=== PATIENT | female | born 1950 | race Caucasian/White ===

== ENCOUNTER → 2016-05-23 | Outpatient (CLI) | payer MEDICARE ==
[2016-05-23 11:23] LABS: Appearance,Urine Clear (Clear); Bilirubin,Urine Negative (Negative); Glucose,Urine (UA) Negative (Negative); Ketones,Urine Negative (Negative); Leukocyte Esterase,Urine Moderate (Negative); Mucus,Urine Rare /hpf; Nitrite,Urine Negative (Negative); Particle Count 2387; Protein,Urine Negative (Negative); RBC,Urine 1 /hpf (0-5); Squamous Epithelial Cell,Urine 2 /hpf (0-4); UA Billing (MACRO vs. MICRO) MICRO; Urobilinogen,Urine <2.0 mg/dL (<2.0); WBC,Urine 5 /hpf (0-5)
[2016-05-23 11:35] LABS: Calcium 9.5 mg/dL (8.4-10.2); Phosphorous 4.8 mg/dL (2.5-4.5); Potassium 4.6 mmol/L (3.5-5.1); Uric Acid 8.2 mg/dL (3.7-7.4)
[2016-05-23 11:46] LABS: Basophils % (A) 0 %; CH 27.3; CHCM 31.2; Eosinophils # (A) 0.1 k/uL (0-0.7); Eosinophils % (A) 2 %; HCT 35.7 % (34.0-46.0); HDW 2.49; Hypochromasia Slight; Luc % (Auto) 3; Lymphocytes # (A) 1.5 k/uL (1.0-4.8); Lymphocytes % (A) 23 %; MCHC 30.7 g/dL (31.0-37.0); MCV 87.9 fL (80.0-100.0); Mean Platelet Volume 8.3; Monocytes # (A) 0.4 k/uL (0-1.0); Monocytes % (A) 7 %; Neutrophils # (A) 4.3 k/uL (1.3-7.7); Neutrophils % (A) 65 %; RBC 4.06 m/uL (3.80-5.40); RDW 14.1 % (11.5-15.5); WBC 6.6 k/uL (3.8-10.6); WBC (Perox) 6.85
== END | disposition home or self-care (01) ==
LOC: LABWHC1 10:00
PROVIDERS: ATTEND Internal Medicine Nephrology
DX: N18.3 Chronic kidney disease, stage 3 (moderate) (principal); N39.0 Urinary tract infection, site not specified; D64.9 Anemia, unspecified; E55.9 Vitamin D deficiency, unspecified; E21.3 Hyperparathyroidism, unspecified; M10.9 Gout, unspecified
CPT/HCPCS: 36415; 80048; 81001; 82306; 82728; 83540; 83550; 83735; 83970; 84100; 84550; 85025

== ENCOUNTER → 2016-09-01 | Outpatient (CLI) | payer MEDICARE ==
[2016-09-01 13:00] LABS: Basophils % (A) 1 %; CH 27.4; CHCM 32.1; Eosinophils # (A) 0.1 k/uL (0-0.7); Eosinophils % (A) 2 %; HDW 2.65; HGB 9.3 gm/dL (11.4-16.0); Luc # (Auto) 0.17; Luc % (Auto) 3; Lymphocytes # (A) 1.6 k/uL (1.0-4.8); Lymphocytes % (A) 26 %; MCH 28.3 pg (25.0-35.0); MCV 85.7 fL (80.0-100.0); Mean Platelet Volume 9.4; Monocytes # (A) 0.4 k/uL (0-1.0); Monocytes % (A) 7 %; Neutrophils # (A) 3.8 k/uL (1.3-7.7); Neutrophils % (A) 62 %; RBC 3.27 m/uL (3.80-5.40); RDW 14.3 % (11.5-15.5); WBC (Perox) 6.16
== END | disposition home or self-care (01) ==
LOC: LABWHC1 12:22
PROVIDERS: ATTEND Obstetrics & Gynecology Gynecology
DX: N95.0 Postmenopausal bleeding (principal)
CPT/HCPCS: 36415; 85025; 86850; 86900; 86901

== ENCOUNTER → 2016-09-21 | Outpatient (CLI) | payer MEDICARE | END | disposition home or self-care (01) | LOC: LABWHC1 13:43 | PROVIDERS: ATTEND Internal Medicine Clinical Cardiac Electrophysiology | DX: G45.9 Transient cerebral ischemic attack, unspecified (principal); I10 Essential (primary) hypertension; E78.5 Hyperlipidemia, unspecified | CPT/HCPCS: 36415; 80061; 84443 ==

== ENCOUNTER → 2017-01-17 | Outpatient (CLI) | payer MEDICARE ==
[2017-01-17 12:36] LABS: Calcium 9.6 mg/dL (8.4-10.2); Potassium 4.5 mmol/L (3.5-5.1)
== END | disposition home or self-care (01) ==
LOC: LABWHC1 11:20
PROVIDERS: ATTEND Internal Medicine Clinical Cardiac Electrophysiology
DX: E78.2 Mixed hyperlipidemia (principal); D64.9 Anemia, unspecified
CPT/HCPCS: 36415; 80048; 80061; 82550; 84450; 84460

== ENCOUNTER → 2017-08-14 | Outpatient (CLI) | payer MEDICARE ==
[2017-08-14 13:15] LABS: Basophils % (A) 1 %; Eosinophils # (A) 0.1 k/uL (0-0.7); Eosinophils % (A) 2 %; HCT 35.9 % (34.0-46.0); HGB 11.6 gm/dL (11.4-16.0); Lymphocytes # (A) 1.5 k/uL (1.0-4.8); Lymphocytes % (A) 32 %; MCH 28.6 pg (25.0-35.0); MCHC 32.2 g/dL (31.0-37.0); MCV 88.8 fL (80.0-100.0); Mean Platelet Volume 8.7; Monocytes # (A) 0.3 k/uL (0-1.0); Monocytes % (A) 7 %; Neutrophils # (A) 2.6 k/uL (1.3-7.7); Neutrophils % (A) 56 %; Platelet Count 139 k/uL (150-450); RBC 4.04 m/uL (3.80-5.40); RDW 14.6 % (11.5-15.5); WBC 4.6 k/uL (3.8-10.6)
[2017-08-14 13:25] LABS: Appearance,Urine Cloudy (Clear); Bacteria,Urine Few /hpf; Bilirubin,Urine Negative (Negative); Blood,Urine Small (Negative); Color,Urine Light Yellow; Glucose,Urine (UA) Negative (Negative); Hyaline Casts,Urine 1 /lpf (0-2); Ketones,Urine Negative (Negative); Leukocyte Esterase,Urine Large (Negative); Mucus,Urine Rare /hpf; Nitrite,Urine Negative (Negative); PH, Urine 5.5 (5.0-8.0); Protein,Urine Negative (Negative); RBC,Urine 6 /hpf (0-5); Specific Gravity,Urine 1.012 (1.001-1.035); Squamous Epithelial Cell,Urine 6 /hpf (0-4); Urobilinogen,Urine <2.0 mg/dL (<2.0); WBC,Urine 33 /hpf (0-5)
[2017-08-14 13:30] LABS: Calcium 9.1 mg/dL (8.4-10.2); Magnesium 2.1 mg/dL (1.6-2.3); Phosphorus 4.1 mg/dL (2.5-4.5); Potassium 4.6 mmol/L (3.5-5.1); Uric Acid 7.7 mg/dL (3.7-7.4)
[2017-08-14 18:54] LABS: Iron Saturation 20.07 (12.00-45.00)
[2017-08-14 19:03] LABS: Vitamin D 25 Hydroxy 49.2 ng/mL (30.0-100.0)
[2017-08-14 20:11] LABS: Parathyroid Hormone Intact 122.9 pg/mL (14.0-72.0)
== END | disposition home or self-care (01) ==
LOC: LABWHC1 11:56
PROVIDERS: ATTEND Nurse Practitioner Family
DX: N18.3 Chronic kidney disease, stage 3 (moderate) (principal); D64.9 Anemia, unspecified; N39.0 Urinary tract infection, site not specified; N25.81 Secondary hyperparathyroidism of renal origin; E79.0 Hyperuricemia without signs of inflammatory arthritis and tophaceous disease
CPT/HCPCS: 36415; 80048; 81001; 82306; 82728; 83540; 83550; 83735; 83970; 84100; 84550; 85025; 87086

== ENCOUNTER → 2017-12-05 | Outpatient (CLI) | payer MEDICARE ==
[2017-12-05 14:31] LABS: Appearance,Urine Cloudy (Clear); Bacteria,Urine Rare /hpf; Basophils % (A) 1 %; Bilirubin,Urine Negative (Negative); Blood,Urine Small (Negative); Color,Urine Yellow; Eosinophils # (A) 0.1 k/uL (0-0.7); Eosinophils % (A) 2 %; Glucose,Urine (UA) Negative (Negative); HCT 35.6 % (34.0-46.0); HGB 11.3 gm/dL (11.4-16.0); Ketones,Urine Negative (Negative); Leukocyte Esterase,Urine Large (Negative); Lymphocytes # (A) 1.4 k/uL (1.0-4.8); Lymphocytes % (A) 27 %; MCH 28.3 pg (25.0-35.0); MCHC 31.7 g/dL (31.0-37.0); MCV 89.4 fL (80.0-100.0); Mean Platelet Volume 8.7; Monocytes # (A) 0.3 k/uL (0-1.0); Monocytes % (A) 6 %; Mucus,Urine Rare /hpf; Neutrophils # (A) 3.2 k/uL (1.3-7.7); Neutrophils % (A) 61 %; Nitrite,Urine Negative (Negative); PH, Urine 6.5 (5.0-8.0); Platelet Count 147 k/uL (150-450); Protein,Urine Negative (Negative); RBC 3.98 m/uL (3.80-5.40); RBC,Urine 4 /hpf (0-5); RDW 14.5 % (11.5-15.5); Specific Gravity,Urine 1.015 (1.001-1.035); Squamous Epithelial Cell,Urine 7 /hpf (0-4); Urobilinogen,Urine <2.0 mg/dL (<2.0); WBC 5.3 k/uL (3.8-10.6); WBC,Urine 8 /hpf (0-5)
[2017-12-05 14:44] LABS: Calcium 9.5 mg/dL (8.4-10.2); Magnesium 2.2 mg/dL (1.6-2.3); Phosphorus 3.6 mg/dL (2.5-4.5); Potassium 4.7 mmol/L (3.5-5.1); Uric Acid 8.3 mg/dL (3.7-7.4)
[2017-12-05 18:08] LABS: Creatinine,Urine Random 142.3 mg/dL
[2017-12-05 18:38] LABS: Iron Saturation 25.98 (12.00-45.00)
[2017-12-05 18:46] LABS: Vitamin D 25 Hydroxy 45.9 ng/mL (30.0-100.0)
[2017-12-05 18:53] LABS: Parathyroid Hormone Intact 91.8 pg/mL (14.0-72.0)
== END ==
LOC: LABWHC1 12:53
PROVIDERS: ATTEND Internal Medicine Nephrology
DX: N18.3 Chronic kidney disease, stage 3 (moderate) (principal); D63.1 Anemia in chronic kidney disease; N39.0 Urinary tract infection, site not specified; M10.9 Gout, unspecified; R80.9 Proteinuria, unspecified; N25.81 Secondary hyperparathyroidism of renal origin
CPT/HCPCS: 36415; 80048; 81001; 82040; 82306; 82570; 82728; 83540; 83550; 83735; 83970; 84100; 84156; 84550; 85025

== ENCOUNTER → 2017-12-27 | Outpatient (CLI) | payer MEDICARE ==
[2017-12-27 13:03] LABS: Basophils % (A) 1 %; Eosinophils # (A) 0.1 k/uL (0-0.7); Eosinophils % (A) 2 %; HCT 36.7 % (34.0-46.0); HGB 11.9 gm/dL (11.4-16.0); Lymphocytes # (A) 1.5 k/uL (1.0-4.8); Lymphocytes % (A) 28 %; MCH 29.3 pg (25.0-35.0); MCHC 32.5 g/dL (31.0-37.0); MCV 90.1 fL (80.0-100.0); Mean Platelet Volume 8.5; Monocytes # (A) 0.3 k/uL (0-1.0); Monocytes % (A) 5 %; Neutrophils # (A) 3.3 k/uL (1.3-7.7); Neutrophils % (A) 61 %; Partial Thromboplastin Time 26.5 sec (22.0-30.0); Platelet Count 147 k/uL (150-450); Prothrombin Time 9.6 sec (9.0-12.0); RBC 4.07 m/uL (3.80-5.40); RDW 14.5 % (11.5-15.5); WBC 5.3 k/uL (3.8-10.6)
--- NOTE | 2017-12-27 14:55 | XR ---
EXAMINATION TYPE: XR chest 2V DATE OF EXAM: 12/27/2017 COMPARISON: Prior chest x-ray 06/04/2013 HISTORY: Preop TECHNIQUE: Frontal and lateral views of the chest are obtained. FINDINGS: There is no focal air space opacity, pleural effusion, or pneumothorax seen. The cardiac silhouette size is within normal limits. Question a spinal curvature. Linear increased density in the left midlung laterally may represent atelectasis or scar. The osseous structures are intact. IMPRESSION: No acute cardiopulmonary process. Some minimal scarring or subsegmental atelectasis may be present.
[2017-12-27 19:03] LABS: Albumin 4.4 g/dL (3.80-4.90); Albumin/Globulin Ratio 1.63 (1.20-2.10); Anion Gap 7.6 mmol/L (4.00-12.00); Calcium 9.3 mg/dL (8.7-10.3); Carbon Dioxide 27.4 mmol/L (21.6-31.8); Globulin 2.7 g/dL (2.1-3.7); Potassium 3.8 mmol/L (3.5-5.5); Total Bilirubin 0.4 mg/dL (0.2-1.2); Total Protein 7.1 g/dL (6.2-8.2)
== END ==
LOC: LABWHC1 12:07
PROVIDERS: ATTEND Family Medicine
DX: Z01.818 Encounter for other preprocedural examination (principal); Z01.812 Encounter for preprocedural laboratory examination; Z51.81 Encounter for therapeutic drug level monitoring; Z79.01 Long term (current) use of anticoagulants
CPT/HCPCS: 36415; 71046; 80053; 85025; 85610; 85730; 87070

== ENCOUNTER → 2018-02-12 | Outpatient (CLI) | payer MEDICARE ==
[2018-02-12 13:07] LABS: Basophils % (A) 1 %; Eosinophils # (A) 0.1 k/uL (0-0.7); Eosinophils % (A) 2 %; HCT 35.6 % (34.0-46.0); HGB 10.9 gm/dL (11.4-16.0); Hypochromasia Moderate; Lymphocytes # (A) 1.5 k/uL (1.0-4.8); Lymphocytes % (A) 28 %; MCH 26.6 pg (25.0-35.0); MCHC 30.7 g/dL (31.0-37.0); MCV 86.6 fL (80.0-100.0); Mean Platelet Volume 8.2; Monocytes # (A) 0.4 k/uL (0-1.0); Monocytes % (A) 8 %; Neutrophils # (A) 3.3 k/uL (1.3-7.7); Neutrophils % (A) 60 %; Platelet Count 180 k/uL (150-450); WBC 5.5 k/uL (3.8-10.6)
[2018-02-12 13:29] LABS: Appearance,Urine Cloudy (Clear); Bacteria,Urine Rare /hpf; Bilirubin,Urine Negative (Negative); Blood,Urine Trace (Negative); Color,Urine Yellow; Glucose,Urine (UA) Negative (Negative); Ketones,Urine Negative (Negative); Leukocyte Esterase,Urine Large (Negative); Mucus,Urine Occasional /hpf; Nitrite,Urine Negative (Negative); Protein,Urine Trace (Negative); RBC,Urine 8 /hpf (0-5); Specific Gravity,Urine 1.015 (1.001-1.035); Squamous Epithelial Cell,Urine 38 /hpf (0-4); Urobilinogen,Urine <2.0 mg/dL (<2.0); WBC,Urine 43 /hpf (0-5)
[2018-02-12 19:36] LABS: Iron Saturation 17.45 (12.00-45.00)
[2018-02-12 19:45] LABS: Vitamin D 25 Hydroxy 55.7 ng/mL (30.0-100.0)
[2018-02-12 20:13] LABS: Albumin 4.2 g/dL (3.80-4.90); Anion Gap 10.7 mmol/L (4.00-12.00); Calcium 9.5 mg/dL (8.7-10.3); Carbon Dioxide 29.3 mmol/L (21.6-31.8); Magnesium 1.8 mg/dL (1.5-2.4); Phosphorus 3.8 mg/dL (2.4-5.1); Potassium 3.2 mmol/L (3.5-5.5); Uric Acid 9.3 mg/dL (2.9-7.7)
[2018-02-12 22:02] LABS: Parathyroid Hormone Intact 106.1 pg/mL (14.0-72.0)
[2018-02-13 02:49] LABS: Creatinine,Urine Random 183.7 mg/dL
[2018-02-13 05:06] LABS: Total Protein,Urine Random 19.8 mg/dL (0.0-13.5)
== END | disposition home or self-care (01) ==
LOC: LABWHC1 11:57
PROVIDERS: ATTEND Internal Medicine Nephrology
DX: N18.4 Chronic kidney disease, stage 4 (severe) (principal); D63.1 Anemia in chronic kidney disease; E55.9 Vitamin D deficiency, unspecified; E21.3 Hyperparathyroidism, unspecified; M10.9 Gout, unspecified; N39.0 Urinary tract infection, site not specified; R80.9 Proteinuria, unspecified
CPT/HCPCS: 36415; 80048; 81001; 82040; 82306; 82570; 82728; 83540; 83550; 83735; 83970; 84100; 84156; 84550; 85025

== ENCOUNTER → 2018-05-10 | Outpatient (CLI) | payer MEDICARE ==
[2018-05-10 11:36] LABS: Anisocytosis Slight; Basophils # (A) 0.1 k/uL (0-0.2); Basophils % (A) 1 %; Eosinophils # (A) 0.1 k/uL (0-0.7); Eosinophils % (A) 2 %; HCT 39.3 % (34.0-46.0); HGB 12.2 gm/dL (11.4-16.0); Lymphocytes # (A) 1.9 k/uL (1.0-4.8); Lymphocytes % (A) 28 %; MCH 27.1 pg (25.0-35.0); MCV 87.5 fL (80.0-100.0); Mean Platelet Volume 8.6; Monocytes # (A) 0.4 k/uL (0-1.0); Monocytes % (A) 6 %; Neutrophils # (A) 4.3 k/uL (1.3-7.7); Neutrophils % (A) 61 %; Platelet Count 172 k/uL (150-450); RBC 4.49 m/uL (3.80-5.40); RDW 16.8 % (11.5-15.5); WBC 6.9 k/uL (3.8-10.6)
[2018-05-10 11:46] LABS: Amorphous Sediment,Urine Rare /hpf; Appearance,Urine Cloudy (Clear); Bacteria,Urine Rare /hpf; Bilirubin,Urine Negative (Negative); Blood,Urine Negative (Negative); Color,Urine Yellow; Glucose,Urine (UA) Negative (Negative); Hyaline Casts,Urine 5 /lpf (0-2); Ketones,Urine Negative (Negative); Leukocyte Esterase,Urine Large (Negative); Mucus,Urine Rare /hpf; Nitrite,Urine Negative (Negative); Protein,Urine Negative (Negative); RBC,Urine 2 /hpf (0-5); Specific Gravity,Urine 1.011 (1.001-1.035); Squamous Epithelial Cell,Urine 9 /hpf (0-4); Urobilinogen,Urine <2.0 mg/dL (<2.0); WBC,Urine 4 /hpf (0-5)
[2018-05-10 19:40] LABS: Parathyroid Hormone Intact 107.7 pg/mL (14.0-72.0)
[2018-05-10 20:11] LABS: Iron Saturation 19.5 (12.00-45.00)
[2018-05-10 20:20] LABS: Vitamin D 25 Hydroxy 48.7 ng/mL (30.0-100.0)
[2018-05-10 20:44] LABS: Albumin 4.5 g/dL (3.80-4.90); Anion Gap 7.2 mmol/L (4.00-12.00); Calcium 9.7 mg/dL (8.7-10.3); Carbon Dioxide 28.8 mmol/L (21.6-31.8); Phosphorus 3.4 mg/dL (2.4-5.1); Potassium 3.8 mmol/L (3.5-5.5); Uric Acid 8.2 mg/dL (2.9-7.7)
[2018-05-10 20:49] LABS: Creatinine,Urine Random 116.1 mg/dL
[2018-05-10 21:13] LABS: Total Protein,Urine Random 8.8 mg/dL (0.0-13.5)
== END | disposition home or self-care (01) ==
LOC: LABWHC1 10:47
PROVIDERS: ATTEND Internal Medicine Nephrology
DX: N18.4 Chronic kidney disease, stage 4 (severe) (principal); E61.1 Iron deficiency; M10.9 Gout, unspecified; R80.9 Proteinuria, unspecified; E55.9 Vitamin D deficiency, unspecified; E21.3 Hyperparathyroidism, unspecified
CPT/HCPCS: 36415; 80048; 81001; 82040; 82306; 82570; 82728; 83540; 83550; 83735; 83970; 84100; 84156; 84550; 85025

== ENCOUNTER → 2018-06-28 | Outpatient (CLI) | payer MEDICARE ==
[2018-06-28 11:13] LABS: HGB 11.5 gm/dL (11.4-16.0); MCH 27.7 pg (25.0-35.0); MCHC 31.1 g/dL (31.0-37.0); MCV 88.8 fL (80.0-100.0); Mean Platelet Volume 8.6; Platelet Count 156 k/uL (150-450); RBC 4.16 m/uL (3.80-5.40); RDW 15.4 % (11.5-15.5); WBC 5.4 k/uL (3.8-10.6)
[2018-06-28 11:50] LABS: Appearance,Urine Clear (Clear); Bacteria,Urine Rare /hpf; Bilirubin,Urine Negative (Negative); Blood,Urine Negative (Negative); Color,Urine Light Yellow; Glucose,Urine (UA) Negative (Negative); Hyaline Casts,Urine 9 /lpf (0-2); Ketones,Urine Negative (Negative); Leukocyte Esterase,Urine Moderate (Negative); Mucus,Urine Rare /hpf; Nitrite,Urine Negative (Negative); PH, Urine 5.5 (5.0-8.0); Protein,Urine Negative (Negative); RBC,Urine 2 /hpf (0-5); Squamous Epithelial Cell,Urine 5 /hpf (0-4); Urobilinogen,Urine <2.0 mg/dL (<2.0); WBC,Urine 2 /hpf (0-5)
[2018-06-28 17:45] LABS: Albumin 4.2 g/dL (3.80-4.90); Albumin/Globulin Ratio 1.62 (1.60-3.17); Calcium 9.4 mg/dL (8.7-10.3); Globulin 2.6 g/dL (1.6-3.3); Potassium 4.2 mmol/L (3.5-5.5); Total Bilirubin 0.5 mg/dL (0.2-1.2); Total Protein 6.8 g/dL (6.2-8.2)
== END | disposition home or self-care (01) ==
LOC: LABWHC1 10:21
PROVIDERS: ATTEND Family Medicine
DX: Z11.59 Encounter for screening for other viral diseases (principal); Z79.899 Other long term (current) drug therapy
CPT/HCPCS: 36415; 80053; 80061; 81001; 82550; 83036; 84443; 85027; 86803

== ENCOUNTER → 2018-09-03 | Outpatient (CLI) | payer MEDICARE ==
[2018-09-03 12:50] LABS: Basophils % (A) 1 %; Eosinophils # (A) 0.2 k/uL (0-0.7); Eosinophils % (A) 3 %; HGB 11.4 gm/dL (11.4-16.0); Lymphocytes # (A) 1.6 k/uL (1.0-4.8); Lymphocytes % (A) 30 %; MCH 27.5 pg (25.0-35.0); MCHC 31.6 g/dL (31.0-37.0); MCV 86.9 fL (80.0-100.0); Mean Platelet Volume 8.4; Monocytes # (A) 0.3 k/uL (0-1.0); Monocytes % (A) 6 %; Neutrophils # (A) 3.1 k/uL (1.3-7.7); Neutrophils % (A) 57 %; Platelet Count 153 k/uL (150-450); RBC 4.14 m/uL (3.80-5.40); RDW 15.2 % (11.5-15.5); WBC 5.4 k/uL (3.8-10.6)
[2018-09-03 13:41] LABS: Appearance,Urine Cloudy (Clear); Bacteria,Urine Rare /hpf; Bilirubin,Urine Negative (Negative); Blood,Urine Small (Negative); Color,Urine Yellow; Glucose,Urine (UA) Negative (Negative); Ketones,Urine Negative (Negative); Leukocyte Esterase,Urine Large (Negative); Mucus,Urine Rare /hpf; Nitrite,Urine Negative (Negative); PH, Urine 5.5 (5.0-8.0); Protein,Urine Negative (Negative); RBC,Urine 7 /hpf (0-5); Specific Gravity,Urine 1.014 (1.001-1.035); Squamous Epithelial Cell,Urine 7 /hpf (0-4); Urobilinogen,Urine <2.0 mg/dL (<2.0); WBC,Urine 4 /hpf (0-5)
[2018-09-03 19:21] LABS: African American GFR (CKD) 37.4 (60.0-200.0); Albumin 4.2 g/dL (3.80-4.90); Anion Gap 9.2 mmol/L (4.00-12.00); BUN/Creat Ratio 18.75 Ratio (12.00-20.00); Calcium 9.3 mg/dL (8.7-10.3); Carbon Dioxide 26.8 mmol/L (21.6-31.8); Iron Saturation 19.11 (12.00-45.00); Magnesium 2.1 mg/dL (1.5-2.4); Phosphorus 3.5 mg/dL (2.4-5.1); Potassium 4.1 mmol/L (3.5-5.5); Uric Acid 9.1 mg/dL (2.9-7.7)
[2018-09-03 19:24] LABS: Parathyroid Hormone Intact 125.9 pg/mL (14.0-72.0)
[2018-09-03 19:25] LABS: Vitamin D 25 Hydroxy 51.6 ng/mL (30.0-100.0)
[2018-09-04 04:00] LABS: Creatinine,Urine Random 114.7 mg/dL
[2018-09-04 04:40] LABS: Total Protein,Urine Random 8.7 mg/dL (0.0-13.5)
== END | disposition home or self-care (01) ==
LOC: LABWHC1 12:16
PROVIDERS: ATTEND Internal Medicine Nephrology
DX: E21.3 Hyperparathyroidism, unspecified (principal); E61.1 Iron deficiency; E55.9 Vitamin D deficiency, unspecified; R80.9 Proteinuria, unspecified; N18.4 Chronic kidney disease, stage 4 (severe); N39.0 Urinary tract infection, site not specified; M10.9 Gout, unspecified
CPT/HCPCS: 36415; 80048; 81001; 82040; 82306; 82570; 82728; 83540; 83550; 83735; 83970; 84100; 84156; 84550; 85025

== ENCOUNTER → 2019-01-03 | Outpatient (CLI) | payer MEDICARE ==
[2019-01-03 12:02] LABS: Appearance,Urine Cloudy (Clear); Bacteria,Urine Occasional /hpf; Bilirubin,Urine Negative (Negative); Blood,Urine Negative (Negative); Color,Urine Light Yellow; Glucose,Urine (UA) Negative (Negative); Hyaline Casts,Urine 8 /lpf (0-2); Ketones,Urine Negative (Negative); Leukocyte Esterase,Urine Large (Negative); Mucus,Urine Rare /hpf; Nitrite,Urine Negative (Negative); Protein,Urine Negative (Negative); RBC,Urine 5 /hpf (0-5); Specific Gravity,Urine 1.008 (1.001-1.035); Squamous Epithelial Cell,Urine 21 /hpf (0-4); Urobilinogen,Urine <2.0 mg/dL (<2.0); WBC,Urine 21 /hpf (0-5)
[2019-01-03 12:05] LABS: Basophils % (A) 1 %; Eosinophils # (A) 0.1 k/uL (0-0.7); Eosinophils % (A) 1 %; HCT 38.8 % (34.0-46.0); HGB 12.7 gm/dL (11.4-16.0); Lymphocytes # (A) 1.5 k/uL (1.0-4.8); Lymphocytes % (A) 23 %; MCH 28.4 pg (25.0-35.0); MCHC 32.8 g/dL (31.0-37.0); MCV 86.6 fL (80.0-100.0); Mean Platelet Volume 8.4; Monocytes # (A) 0.3 k/uL (0-1.0); Monocytes % (A) 4 %; Neutrophils # (A) 4.5 k/uL (1.3-7.7); Neutrophils % (A) 68 %; Platelet Count 189 k/uL (150-450); RBC 4.48 m/uL (3.80-5.40); RDW 15.4 % (11.5-15.5); WBC 6.6 k/uL (3.8-10.6)
[2019-01-03 16:44] LABS: Creatinine,Urine Random 55.5 mg/dL
[2019-01-03 16:52] LABS: Total Protein,Urine Random 10.2 mg/dL (0.0-13.5)
[2019-01-03 17:50] LABS: Ferritin 67.6 ng/mL (10.0-291.0)
[2019-01-03 18:05] LABS: % Iron Saturation 21.36 (12.00-45.00); African American GFR (CKD) 34.8 (60.0-200.0); Albumin 4.3 g/dL (3.80-4.90); Anion Gap 10.9 mmol/L (4.00-12.00); BUN/Creat Ratio 29.41 Ratio (12.00-20.00); Calcium 9.5 mg/dL (8.7-10.3); Carbon Dioxide 33.1 mmol/L (21.6-31.8); Magnesium 1.9 mg/dL (1.5-2.4); Phosphorus 3.3 mg/dL (2.4-5.1)
[2019-01-04 09:19] LABS: Potassium 2.7 mmol/L (3.5-5.5)
== END | disposition home or self-care (01) ==
LOC: LABWHC1 11:12
PROVIDERS: ATTEND Internal Medicine Nephrology
DX: N18.4 Chronic kidney disease, stage 4 (severe) (principal); D63.1 Anemia in chronic kidney disease; N25.81 Secondary hyperparathyroidism of renal origin; M10.9 Gout, unspecified; N39.0 Urinary tract infection, site not specified; R80.9 Proteinuria, unspecified
CPT/HCPCS: 36415; 80048; 81001; 82040; 82306; 82570; 82728; 83540; 83550; 83735; 83970; 84100; 84156; 84550; 85025; 87077; 87086; 87186

== ENCOUNTER → 2019-01-14 | Outpatient (CLI) | payer MEDICARE ==
[2019-01-14 20:03] LABS: African American GFR (CKD) 34.8 (60.0-200.0); Anion Gap 10.5 mmol/L (4.00-12.00); BUN/Creat Ratio 24.71 Ratio (12.00-20.00); Calcium 9.3 mg/dL (8.7-10.3); Carbon Dioxide 31.5 mmol/L (21.6-31.8)
[2019-01-15 07:30] LABS: Potassium 2.6 mmol/L (3.5-5.5)
== END | disposition home or self-care (01) ==
LOC: LABWHC1 12:45
PROVIDERS: ATTEND Internal Medicine Nephrology
DX: N18.3 Chronic kidney disease, stage 3 (moderate) (principal)
CPT/HCPCS: 36415; 80048

== ENCOUNTER → 2019-01-20 | Outpatient (CLI) | payer MEDICARE | END | disposition home or self-care (01) | LOC: LABWHC1 11:40 | PROVIDERS: ATTEND Internal Medicine Nephrology | DX: N18.4 Chronic kidney disease, stage 4 (severe) (principal); E87.6 Hypokalemia | CPT/HCPCS: 36415; 84132; 87086 ==

== ENCOUNTER → 2019-02-05 | Outpatient (CLI) | payer MEDICARE ==
--- NOTE | 2019-02-05 15:26 | BD ---
EXAMINATION TYPE: Axial Bone Density DATE OF EXAM: 02/05/2019 COMPARISON: NONE CLINICAL HISTORY: Z 78.0 Height: 5 FT 5 1/2 IN Weight: 382 FRAX RISK QUESTIONS: Alcohol (3 or more units per day): NO Family History (Parent hip fracture): NO Glucocorticoids (More than 3mos): NO (Ex: prednisone, prednisolone, methylprednisolone, dexamethasone, and hydrocortisone). History of Fracture in Adulthood: NO Secondary Osteoporosis: 1. Type 1 Diabetes: NO 2. Hyperthyroidism: NO 3. Menopause before 45: NO 4. Malnutrition: NO 5. Chronic liver disease: NO Rheumatoid Arthritis: NO Current Tobacco Use: NO RISK FACTORS HISTORY OF: Family History of Osteoporosis: YES Active: YES Postmenopausal woman: UNSURE WHEN MENOPAUSE WAS Poor Health: GOOD MEDICATIONS: Thyroid Medications: YES Which medication: SYNTHROID How Long: OVER 20 YEARS Additional Medications: SYNTHROID, CLARITIN, PLAVIX, SIMVASTATIN, PREVACID, VIT D3, ALLOPURINOL, AMLO DIPINE ,FUROSEMIDE, POTASSIUM, METOLAZINE, NITRO NEEDED, CEPHALEXIN NEEDED FOR DENTAL WORK Additional History: EXAM MEASUREMENTS: Bone mineral densitometry was performed using the [employer] System. Bone mineral density as measured about the Lumbar spine is: ----- L1-L4(G/cm2): 1.386 T Score Values are as follows: ----- L2: 0.5 ----- L3: 2.3 ----- L4: 2.1 ----- L1-L4: 1.7 BASELINE Bone mineral density about the R hip (g/cm2): 0.807 Bone mineral density about the L hip (g/cm2): 0.844 T Score values are as follows: -----R Neck: -1.7 -----L Neck: -1.4 -----R Total: -1.5 -----L Total: -1.0 BASELINE IMPRESSION: Osteopenia (T Score between -2.5 and -1). There is slightly increased risk of fracture and the patient may be considered for treatment. Re-Screen 2-5 years. NOTE: T-SCORE=SD OF THE YOUNG ADULT MEAN.
--- NOTE | 2019-02-07 12:23 | MM ---
Reason for exam: screening (asymptomatic). History: Patient history of other cancer. Family history of breast cancer in mother. Excisional biopsy of the left breast, 1988. Physical Findings: A clinical breast exam by your physician is recommended on an annual basis and results should be correlated with mammographic findings. MG 3D Screening Mammo W/Cad Bilateral CC, MLO, and XCCL view(s) were taken. There are scattered fibroglandular densities. There is chronic nodularity bilaterally. No significant changes when compared with prior studies. ASSESSMENT: Benign, BI-RAD 2 RECOMMENDATION: Routine screening mammogram of both breasts in 1 year.
== END | disposition home or self-care (01) ==
LOC: RADMAMWWP 13:55
PROVIDERS: ATTEND Family Medicine
DX: Z12.31 Encounter for screening mammogram for malignant neoplasm of breast (principal); M85.80 Other specified disorders of bone density and structure, unspecified site; Z78.0 Asymptomatic menopausal state
CPT/HCPCS: 77063; 77067; 77080

== ENCOUNTER → 2019-02-05 | Outpatient (CLI) | payer MEDICARE | END | disposition home or self-care (01) | LOC: LABWHC1 14:53 | PROVIDERS: ATTEND Internal Medicine Nephrology | DX: E87.6 Hypokalemia (principal) | CPT/HCPCS: 36415; 84132 ==

== ENCOUNTER → 2019-02-18 | Outpatient (CLI) | payer MEDICARE | LOC: LABWHC1 10:23 | PROVIDERS: ATTEND Internal Medicine Nephrology | DX: E87.6 Hypokalemia (principal) | CPT/HCPCS: 36415; 84132 ==

== ENCOUNTER → 2019-03-07 | Outpatient (CLI) | payer MEDICARE ==
[2019-03-08 00:55] LABS: African American GFR (CKD) 30.2 (60.0-200.0); Anion Gap 11.9 mmol/L (4.00-12.00); BUN/Creat Ratio 24.74 Ratio (12.00-20.00); Carbon Dioxide 29.1 mmol/L (21.6-31.8); Non-African American GFR(CKD) 26.1 (60.0-200.0); Potassium 3.8 mmol/L (3.5-5.5)
== END | disposition home or self-care (01) ==
LOC: LABWHC1 16:16
PROVIDERS: ATTEND Nurse Practitioner Family
DX: N18.3 Chronic kidney disease, stage 3 (moderate) (principal)
CPT/HCPCS: 36415; 80048

== ENCOUNTER → 2019-08-13 | Outpatient (CLI) | payer MEDICARE ==
[2019-08-13 13:06] LABS: Anisocytosis Slight; Basophils % (A) 1 %; Eosinophils # (A) 0.2 k/uL (0-0.7); Eosinophils % (A) 2 %; HGB 11.8 gm/dL (11.4-16.0); Lymphocytes # (A) 1.8 k/uL (1.0-4.8); Lymphocytes % (A) 27 %; MCH 27.9 pg (25.0-35.0); MCV 89.8 fL (80.0-100.0); Mean Platelet Volume 10.1; Monocytes # (A) 0.4 k/uL (0-1.0); Monocytes % (A) 6 %; Neutrophils # (A) 3.9 k/uL (1.3-7.7); Neutrophils % (A) 60 %; Platelet Count 151 k/uL (150-450); RBC 4.23 m/uL (3.80-5.40); RDW 16.2 % (11.5-15.5); WBC 6.5 k/uL (3.8-10.6)
[2019-08-13 14:33] LABS: Appearance,Urine Cloudy (Clear); Bacteria,Urine Occasional /hpf; Bilirubin,Urine Negative (Negative); Blood,Urine Trace (Negative); Color,Urine Yellow; Glucose,Urine (UA) Negative (Negative); Hyaline Casts,Urine 5 /lpf (0-2); Ketones,Urine Negative (Negative); Leukocyte Esterase,Urine Large (Negative); Mucus,Urine Rare /hpf; Nitrite,Urine Negative (Negative); PH, Urine 5.5 (5.0-8.0); Protein,Urine Negative (Negative); RBC,Urine 32 /hpf (0-5); Specific Gravity,Urine 1.016 (1.001-1.035); Squamous Epithelial Cell,Urine 14 /hpf (0-4); Urobilinogen,Urine <2.0 mg/dL (<2.0); WBC,Urine 30 /hpf (0-5)
[2019-08-13 15:36] LABS: Protein/Creatinine Ratio,Urine 0.057
[2019-08-13 18:50] LABS: % Iron Saturation 19.17 (12.00-45.00); African American GFR (CKD) 30.2 (60.0-200.0); Albumin 4.2 g/dL (3.80-4.90); Anion Gap 9.8 mmol/L (4.00-12.00); BUN/Creat Ratio 26.32 Ratio (12.00-20.00); Calcium 9.4 mg/dL (8.7-10.3); Carbon Dioxide 27.2 mmol/L (21.6-31.8); Magnesium 1.9 mg/dL (1.5-2.4); Non-African American GFR(CKD) 26.1 (60.0-200.0); Phosphorus 3.4 mg/dL (2.4-5.1); Potassium 3.5 mmol/L (3.5-5.5); Uric Acid 8.3 mg/dL (2.9-7.7)
[2019-08-13 18:57] LABS: Ferritin 45.9 ng/mL (10.0-291.0)
== END | disposition home or self-care (01) ==
LOC: LABWHC1 12:39
PROVIDERS: ATTEND Internal Medicine Nephrology
DX: N18.3 Chronic kidney disease, stage 3 (moderate) (principal); D63.1 Anemia in chronic kidney disease; N25.81 Secondary hyperparathyroidism of renal origin; M10.9 Gout, unspecified; N39.0 Urinary tract infection, site not specified; E55.9 Vitamin D deficiency, unspecified; R80.9 Proteinuria, unspecified
CPT/HCPCS: 36415; 80048; 81001; 82040; 82306; 82570; 82728; 83540; 83550; 83735; 83970; 84100; 84156; 84550; 85025

== ENCOUNTER → 2019-11-25 | Outpatient (CLI) | payer MEDICARE ==
[2019-11-25 12:53] LABS: Anisocytosis Slight; Basophils # (A) 0.1 k/uL (0-0.2); Basophils % (A) 1 %; Eosinophils # (A) 0.1 k/uL (0-0.7); Eosinophils % (A) 2 %; HCT 38.3 % (34.0-46.0); Lymphocytes # (A) 1.9 k/uL (1.0-4.8); Lymphocytes % (A) 25 %; MCH 27.9 pg (25.0-35.0); MCHC 31.2 g/dL (31.0-37.0); MCV 89.4 fL (80.0-100.0); Mean Platelet Volume 9.3; Monocytes # (A) 0.4 k/uL (0-1.0); Monocytes % (A) 6 %; Neutrophils # (A) 4.8 k/uL (1.3-7.7); Neutrophils % (A) 65 %; Platelet Count 155 k/uL (150-450); RBC 4.29 m/uL (3.80-5.40); RDW 16.2 % (11.5-15.5); WBC 7.5 k/uL (3.8-10.6)
[2019-11-25 13:12] LABS: Appearance,Urine Cloudy (Clear); Bacteria,Urine Rare /hpf; Bilirubin,Urine Negative (Negative); Blood,Urine Trace (Negative); Color,Urine Light Yellow; Glucose,Urine (UA) Negative (Negative); Ketones,Urine Negative (Negative); Leukocyte Esterase,Urine Large (Negative); Mucus,Urine Rare /hpf; Nitrite,Urine Negative (Negative); Protein,Urine Negative (Negative); RBC,Urine 39 /hpf (0-5); Squamous Epithelial Cell,Urine 9 /hpf (0-4); Urobilinogen,Urine <2.0 mg/dL (<2.0); WBC,Urine 37 /hpf (0-5)
[2019-11-25 21:02] LABS: % Iron Saturation 9.47 (12.00-45.00); African American GFR (CKD) 30.2 (60.0-200.0); Albumin 4.4 g/dL (3.80-4.90); Anion Gap 11.8 mmol/L (4.00-12.00); BUN/Creat Ratio 27.89 Ratio (12.00-20.00); Calcium 9.5 mg/dL (8.7-10.3); Carbon Dioxide 27.2 mmol/L (21.6-31.8); Magnesium 1.8 mg/dL (1.5-2.4); Non-African American GFR(CKD) 26.1 (60.0-200.0); Phosphorus 3.4 mg/dL (2.4-5.1); Potassium 3.4 mmol/L (3.5-5.5); Uric Acid 6.9 mg/dL (2.9-7.7)
== END | disposition home or self-care (01) ==
LOC: LABWHC1 12:12
PROVIDERS: ATTEND Internal Medicine Nephrology
DX: N39.0 Urinary tract infection, site not specified (principal); N18.3 Chronic kidney disease, stage 3 (moderate); D63.1 Anemia in chronic kidney disease; E55.9 Vitamin D deficiency, unspecified; N25.81 Secondary hyperparathyroidism of renal origin; M10.9 Gout, unspecified
CPT/HCPCS: 36415; 80048; 81001; 82040; 82306; 82570; 82728; 83540; 83550; 83735; 83970; 84100; 84156; 84550; 85025

== ENCOUNTER → 2019-12-04 | Outpatient (CLI) | payer MEDICARE ==
[2019-12-04 12:12] LABS: Anisocytosis Slight; Basophils % (A) 1 %; Eosinophils # (A) 0.1 k/uL (0-0.7); Eosinophils % (A) 2 %; HCT 39.4 % (34.0-46.0); HGB 12.3 gm/dL (11.4-16.0); Lymphocytes # (A) 1.9 k/uL (1.0-4.8); Lymphocytes % (A) 21 %; MCH 27.9 pg (25.0-35.0); MCHC 31.3 g/dL (31.0-37.0); MCV 89.3 fL (80.0-100.0); Mean Platelet Volume 9.4; Monocytes # (A) 0.6 k/uL (0-1.0); Monocytes % (A) 6 %; Neutrophils # (A) 6.4 k/uL (1.3-7.7); Neutrophils % (A) 69 %; Platelet Count 170 k/uL (150-450); RBC 4.41 m/uL (3.80-5.40); RDW 16.1 % (11.5-15.5); WBC 9.3 k/uL (3.8-10.6)
[2019-12-04 12:42] LABS: Appearance,Urine Cloudy (Clear); Bacteria,Urine Rare /hpf; Bilirubin,Urine Negative (Negative); Blood,Urine Trace (Negative); Color,Urine Yellow; Glucose,Urine (UA) Negative (Negative); Hyaline Casts,Urine 7 /lpf (0-2); Ketones,Urine Negative (Negative); Leukocyte Esterase,Urine Large (Negative); Mucus,Urine Rare /hpf; Nitrite,Urine Negative (Negative); PH, Urine 5.5 (5.0-8.0); Protein,Urine Negative (Negative); RBC,Urine 41 /hpf (0-5); Specific Gravity,Urine 1.014 (1.001-1.035); Squamous Epithelial Cell,Urine 8 /hpf (0-4); Urobilinogen,Urine <2.0 mg/dL (<2.0); WBC,Urine 122 /hpf (0-5)
[2019-12-05 00:34] LABS: Ferritin 34.7 ng/mL (10.0-291.0)
[2019-12-05 00:45] LABS: % Iron Saturation 17.42 (12.00-45.00); African American GFR (CKD) 26.8 (60.0-200.0); Anion Gap 12.3 mmol/L (4.00-12.00); BUN/Creat Ratio 29.52 Ratio (12.00-20.00); Calcium 9.9 mg/dL (8.7-10.3); Carbon Dioxide 25.7 mmol/L (21.6-31.8); Non-African American GFR(CKD) 23.1 (60.0-200.0); Potassium 3.8 mmol/L (3.5-5.5); Uric Acid 6.7 mg/dL (2.9-7.7)
== END | disposition home or self-care (01) ==
LOC: LABWHC1 09:22
PROVIDERS: ATTEND Nurse Practitioner Family
DX: N25.81 Secondary hyperparathyroidism of renal origin (principal); N39.0 Urinary tract infection, site not specified; M10.9 Gout, unspecified; D63.1 Anemia in chronic kidney disease; N18.30 Chronic kidney disease, stage 3 unspecified
CPT/HCPCS: 36415; 80048; 81001; 82728; 83540; 83550; 83970; 84550; 85025

== ENCOUNTER → 2020-03-08 | Outpatient (CLI) | payer MEDICARE ==
[2020-03-08 11:30] LABS: Appearance,Urine Cloudy (Clear); Bacteria,Urine Rare /hpf; Bilirubin,Urine Negative (Negative); Blood,Urine Trace (Negative); Color,Urine Light Yellow; Glucose,Urine (UA) Negative (Negative); Ketones,Urine Negative (Negative); Leukocyte Esterase,Urine Large (Negative); Mucus,Urine Rare /hpf; Nitrite,Urine Negative (Negative); PH, Urine 6.5 (5.0-8.0); Protein,Urine Negative (Negative); RBC,Urine 19 /hpf (0-5); Specific Gravity,Urine 1.009 (1.001-1.035); Squamous Epithelial Cell,Urine 4 /hpf (0-4); Urobilinogen,Urine <2.0 mg/dL (<2.0); WBC,Urine 51 /hpf (0-5)
[2020-03-08 11:34] LABS: Anisocytosis Slight; Basophils # (A) 0.1 k/uL (0-0.2); Basophils % (A) 1 %; Eosinophils # (A) 0.2 k/uL (0-0.7); Eosinophils % (A) 2 %; HCT 36.9 % (34.0-46.0); HGB 11.8 gm/dL (11.4-16.0); Hypochromasia Slight; Lymphocytes # (A) 1.7 k/uL (1.0-4.8); Lymphocytes % (A) 23 %; MCH 28.7 pg (25.0-35.0); MCHC 31.8 g/dL (31.0-37.0); MCV 90.2 fL (80.0-100.0); Monocytes # (A) 0.5 k/uL (0-1.0); Monocytes % (A) 6 %; Neutrophils # (A) 4.8 k/uL (1.3-7.7); Neutrophils % (A) 66 %; Platelet Count 190 k/uL (150-450); RBC 4.09 m/uL (3.80-5.40); WBC 7.4 k/uL (3.8-10.6)
[2020-03-08 20:32] LABS: % Iron Saturation 13.43 (12.00-45.00); African American GFR (CKD) 23.8 (60.0-200.0); Anion Gap 7.7 mmol/L (4.00-12.00); BUN/Creat Ratio 21.3 Ratio (12.00-20.00); Calcium 9.8 mg/dL (8.7-10.3); Carbon Dioxide 27.3 mmol/L (21.6-31.8); Non-African American GFR(CKD) 20.5 (60.0-200.0); Potassium 4.6 mmol/L (3.5-5.5); Uric Acid 6.3 mg/dL (2.9-7.7)
== END | disposition home or self-care (01) ==
LOC: LABWHC1 10:34
PROVIDERS: ATTEND Nurse Practitioner Family
DX: M10.9 Gout, unspecified (principal); D63.1 Anemia in chronic kidney disease; N18.30 Chronic kidney disease, stage 3 unspecified; N25.81 Secondary hyperparathyroidism of renal origin; N39.0 Urinary tract infection, site not specified
CPT/HCPCS: 36415; 80048; 81001; 82728; 83540; 83550; 83970; 84550; 85025

== ENCOUNTER → 2020-03-22 | Outpatient (CLI) | payer MEDICARE ==
[2020-03-22 19:16] LABS: African American GFR (CKD) 25.1 (60.0-200.0); Anion Gap 8.5 mmol/L (4.00-12.00); BUN/Creat Ratio 23.18 Ratio (12.00-20.00); Calcium 9.6 mg/dL (8.7-10.3); Carbon Dioxide 27.5 mmol/L (21.6-31.8); Non-African American GFR(CKD) 21.7 (60.0-200.0); Potassium 4.1 mmol/L (3.5-5.5)
== END | disposition home or self-care (01) ==
LOC: LABWHC1 10:26
PROVIDERS: ATTEND Nurse Practitioner Family
DX: N18.30 Chronic kidney disease, stage 3 unspecified (principal)
CPT/HCPCS: 36415; 80048

== ENCOUNTER → 2020-06-22 | Outpatient (CLI) | payer MEDICARE ==
[2020-06-22 13:32] LABS: Appearance,Urine Clear (Clear); Bacteria,Urine Many /hpf; Bilirubin,Urine Negative (Negative); Blood,Urine Trace (Negative); Color,Urine Colorless; Glucose,Urine (UA) Negative (Negative); Ketones,Urine Negative (Negative); Leukocyte Esterase,Urine Large (Negative); Mucus,Urine Rare /hpf; Nitrite,Urine Negative (Negative); PH, Urine 5.5 (5.0-8.0); Protein,Urine Negative (Negative); RBC,Urine 17 /hpf (0-5); Specific Gravity,Urine 1.007 (1.001-1.035); Squamous Epithelial Cell,Urine 1 /hpf (0-4); Urobilinogen,Urine <2.0 mg/dL (<2.0); WBC,Urine 95 /hpf (0-5)
[2020-06-22 20:54] LABS: Basophils # (A) 0.04 X 10*3/uL (0.00-0.10); Basophils % (A) 0.5 %; Eosinophils # (A) 0.18 X 10*3/uL (0.04-0.35); Eosinophils % (A) 2.1 %; HCT 37.6 % (37.2-46.3); HGB 11.5 g/dL (12.0-15.0); Lymphocytes # (A) 1.82 X 10*3/uL (0.90-5.00); Lymphocytes % (A) 20.9 %; MCH 27.8 pg (27.0-32.0); MCHC 30.6 g/dL (32.0-37.0); Mean Platelet Volume 12.4 fL (9.5-12.2); Monocytes # (A) 0.71 X 10*3/uL (0.20-1.00); Monocytes % (A) 8.1 %; Neutrophils # (A) 5.92 X 10*3/uL (1.80-7.70); Neutrophils % (A) 67.8 %; Platelet Count 206 X 10*3/uL (140-440); RBC 4.13 X 10*6/uL (4.10-5.20); RDW 16.5 % (11.5-14.5); WBC 8.72 X 10*3/uL (4.50-10.00)
[2020-06-23 18:57] LABS: Ferritin 47.3 ng/mL (10.0-291.0)
[2020-06-23 19:23] LABS: % Iron Saturation 13.11 (12.00-45.00); African American GFR (CKD) 21.5 (60.0-200.0); Anion Gap 17.5 mmol/L (4.00-12.00); Calcium 10.8 mg/dL (8.7-10.3); Carbon Dioxide 21.5 mmol/L (21.6-31.8); Magnesium 2.2 mg/dL (1.5-2.4); Non-African American GFR(CKD) 18.6 (60.0-200.0); Phosphorus 4.8 mg/dL (2.4-5.1)
[2020-06-23 20:10] LABS: Uric Acid 6.5 mg/dL (2.9-7.7)
== END | disposition home or self-care (01) ==
LOC: LABWHC1 11:30
PROVIDERS: ATTEND Nurse Practitioner Family
DX: N25.81 Secondary hyperparathyroidism of renal origin (principal); E79.0 Hyperuricemia without signs of inflammatory arthritis and tophaceous disease; N18.30 Chronic kidney disease, stage 3 unspecified; E55.9 Vitamin D deficiency, unspecified; N39.0 Urinary tract infection, site not specified
CPT/HCPCS: 36415; 80048; 81001; 82306; 82728; 83540; 83550; 83735; 83970; 84100; 84550; 85025

== ENCOUNTER → 2020-07-06 | Outpatient (CLI) | payer MEDICARE ==
[2020-07-07 01:54] LABS: Anion Gap 8.8 mmol/L (4.00-12.00); BUN/Creat Ratio 21.11 Ratio (12.00-20.00); Calcium 9.4 mg/dL (8.7-10.3); Carbon Dioxide 25.2 mmol/L (21.6-31.8); Non-African American GFR(CKD) 27.6 (60.0-200.0); Potassium 5.3 mmol/L (3.5-5.5)
== END | disposition home or self-care (01) ==
LOC: LABWHC1 09:10
PROVIDERS: ATTEND Nurse Practitioner Family
DX: N18.30 Chronic kidney disease, stage 3 unspecified (principal)
CPT/HCPCS: 36415; 80048

== ENCOUNTER → 2020-11-09 | Outpatient (CLI) | payer MEDICARE ==
[2020-11-09 14:40] LABS: Appearance,Urine Clear (Clear); Bilirubin,Urine Negative (Negative); Color,Urine Colorless; Glucose,Urine (UA) Negative (Negative); Ketones,Urine Negative (Negative); PH, Urine 5.5 (5.0-8.0); Protein,Urine Negative (Negative); Specific Gravity,Urine 1.007 (1.001-1.035)
[2020-11-09 14:41] LABS: Bacteria,Urine Rare /hpf; Blood,Urine Negative (Negative); Leukocyte Esterase,Urine Large (Negative); Mucus,Urine Rare /hpf; Nitrite,Urine Negative (Negative); RBC,Urine 4 /hpf (0-5); Squamous Epithelial Cell,Urine 3 /hpf (0-4); Urobilinogen,Urine <2.0 mg/dL (<2.0); WBC,Urine 39 /hpf (0-5)
[2020-11-09 20:58] LABS: Basophils # (A) 0.04 X 10*3/uL (0.00-0.10); Basophils % (A) 0.6 %; Eosinophils # (A) 0.14 X 10*3/uL (0.04-0.35); Eosinophils % (A) 2.1 %; HCT 35.6 % (37.2-46.3); HGB 10.8 g/dL (12.0-15.0); Lymphocytes # (A) 1.63 X 10*3/uL (0.90-5.00); MCH 27.8 pg (27.0-32.0); MCHC 30.3 g/dL (32.0-37.0); MCV 91.5 fL (80.0-97.0); Mean Platelet Volume 12.1 fL (9.5-12.2); Monocytes # (A) 0.61 X 10*3/uL (0.20-1.00); Neutrophils # (A) 4.34 X 10*3/uL (1.80-7.70); Neutrophils % (A) 63.7 %; Platelet Count 163 X 10*3/uL (140-440); RBC 3.89 X 10*6/uL (4.10-5.20); RDW 16.2 % (11.5-14.5)
[2020-11-10 00:54] LABS: ALT 14 U/L (8-44); AST 20 U/L (13-35); Albumin/Globulin Ratio 1.34 (1.60-3.17); Alkaline Phosphatase 103 U/L (41-126); Bilirubin, Conjugated <0.20 mg/dL (0.20-0.40); Globulin 3.2 g/dL (1.6-3.3); Total Bilirubin 0.4 mg/dL (0.2-1.2); Total Protein 7.5 g/dL (6.2-8.2)
[2020-11-10 00:55] LABS: Chol/HDL Ratio 3.62; Cholesterol 163 mg/dL (0-200); Creatine Kinase 79 U/L (26-186); LDH 162 U/L (120-246); LDL Cholesterol,Calculated 84.8 mg/dL (0.0-131.0); Magnesium 2.1 mg/dL (1.5-2.4)
[2020-11-10 09:13] LABS: Folate, Serum 9.5 ng/mL
[2020-11-11 11:47] LABS: ANA Pattern Speckled
== END | disposition home or self-care (01) ==
LOC: LABWHC1 12:59
PROVIDERS: ATTEND Family Medicine
DX: Z00.00 Encounter for general adult medical examination without abnormal findings (principal); E03.9 Hypothyroidism, unspecified; I10 Essential (primary) hypertension; E78.5 Hyperlipidemia, unspecified; D64.9 Anemia, unspecified; Z79.899 Other long term (current) drug therapy; M62.838 Other muscle spasm
CPT/HCPCS: 36415; 80061; 80076; 81001; 82085; 82550; 82607; 82746; 83036; 83615; 83735; 84439; 84443; 84480; 85025; 86038; 86039

== ENCOUNTER → 2021-03-29 | Outpatient (CLI) | payer MEDICARE ==
[2021-03-29 14:40] LABS: Appearance,Urine Cloudy (Clear); Bacteria,Urine Rare /hpf; Bilirubin,Urine Negative (Negative); Blood,Urine Moderate (Negative); Color,Urine Light Yellow; Glucose,Urine (UA) Negative (Negative); Ketones,Urine Negative (Negative); Leukocyte Esterase,Urine Large (Negative); Mucus,Urine Rare /hpf; Nitrite,Urine Negative (Negative); Protein,Urine Negative (Negative); RBC,Urine 8 /hpf (0-5); Specific Gravity,Urine 1.008 (1.001-1.035); Squamous Epithelial Cell,Urine 3 /hpf (0-4); Urobilinogen,Urine <2.0 mg/dL (<2.0); WBC,Urine 12 /hpf (0-5)
[2021-03-29 17:58] LABS: Basophils # (A) 0.04 X 10*3/uL (0.00-0.10); Basophils % (A) 0.6 %; Eosinophils # (A) 0.21 X 10*3/uL (0.04-0.35); Eosinophils % (A) 3.4 %; HCT 35.9 % (37.2-46.3); HGB 10.6 g/dL (12.0-15.0); Lymphocytes # (A) 1.61 X 10*3/uL (0.90-5.00); Lymphocytes % (A) 25.9 %; MCH 26.8 pg (27.0-32.0); MCHC 29.5 g/dL (32.0-37.0); MCV 90.9 fL (80.0-97.0); Mean Platelet Volume 11.8 fL (9.5-12.2); Monocytes # (A) 0.54 X 10*3/uL (0.20-1.00); Monocytes % (A) 8.7 %; Neutrophils # (A) 3.81 X 10*3/uL (1.80-7.70); Neutrophils % (A) 61.2 %; Platelet Count 168 X 10*3/uL (140-440); RBC 3.95 X 10*6/uL (4.10-5.20); RDW 16.2 % (11.5-14.5); WBC 6.22 X 10*3/uL (4.50-10.00)
[2021-03-29 19:47] LABS: Ferritin 38.1 ng/mL (10.0-291.0)
[2021-03-30 03:25] LABS: % Iron Saturation 12.27 (12.00-45.00); BUN/Creat Ratio 19.72 Ratio (12.00-20.00); Blood Urea Nitrogen 35.3 mg/dL (9.0-27.0); Calcium 10.1 mg/dL (8.7-10.3); Carbon Dioxide 15.3 mmol/L (20.0-27.5); Magnesium 2.2 mg/dL (1.5-2.4); Non-African American GFR(CKD) 27.6 (60.0-200.0); Potassium 4.8 mmol/L (3.5-5.5); Uric Acid 4.8 mg/dL (2.9-7.7)
== END | disposition home or self-care (01) ==
LOC: LABWHC1 11:21
PROVIDERS: ATTEND Nurse Practitioner Family
DX: N25.81 Secondary hyperparathyroidism of renal origin (principal); E79.0 Hyperuricemia without signs of inflammatory arthritis and tophaceous disease; N18.9 Chronic kidney disease, unspecified; N39.0 Urinary tract infection, site not specified; E55.9 Vitamin D deficiency, unspecified; N18.30 Chronic kidney disease, stage 3 unspecified
CPT/HCPCS: 36415; 80048; 81001; 82306; 82728; 83540; 83550; 83735; 83970; 84100; 84550; 85025; 87086

== ENCOUNTER → 2021-07-29 | Outpatient (CLI) | payer MEDICARE ==
[2021-07-29 12:57] LABS: Creatinine,Urine Random 61.6 mg/dL; Protein/Creatinine Ratio,Urine 0.146
[2021-07-29 19:15] LABS: % Iron Saturation 9.57 (12.00-45.00); Anion Gap 10.6 mmol/L (10.00-18.00); BUN/Creat Ratio 22.07 Ratio (12.00-20.00); Blood Urea Nitrogen 40.6 mg/dL (9.0-27.0); Calcium 9.8 mg/dL (8.7-10.3); Carbon Dioxide 25.3 mmol/L (20.0-27.5); Magnesium 2.3 mg/dL (1.5-2.4); Non-African American GFR(CKD) 26.7 (60.0-200.0); Phosphorus 3.9 mg/dL (2.4-5.1); Potassium 4.7 mmol/L (3.5-5.5); Uric Acid 5.4 mg/dL (2.9-7.7)
[2021-07-29 19:34] LABS: Albumin 4.2 g/dL (3.8-4.9); Ferritin 35.4 ng/mL (10.0-291.0)
[2021-07-29 20:30] LABS: Appearance,Urine Cloudy (Clear); Bilirubin,Urine Negative (Negative); Blood,Urine Trace (Negative); Color,Urine Yellow (Yellow); Ketones,Urine Negative (Negative); Nitrite,Urine Negative (Negative); PH, Urine 5.5 (5.0-8.0); Specific Gravity,Urine 1.012 (1.001-1.030); Urobilinogen,Urine 0.2 (0.2,1.0)
[2021-07-29 20:36] LABS: Basophils # (A) 0.04 X 10*3/uL (0.00-0.10); Basophils % (A) 0.6 %; Eosinophils # (A) 0.17 X 10*3/uL (0.04-0.35); Eosinophils % (A) 2.5 %; HCT 36.6 % (37.2-46.3); HGB 10.8 g/dL (12.0-15.0); Immature Grans, Automated 0.4 %; Lymphocytes # (A) 1.64 X 10*3/uL (0.90-5.00); MCH 27.1 pg (27.0-32.0); MCHC 29.5 g/dL (32.0-37.0); Mean Platelet Volume 12.3 fL (9.5-12.2); Monocytes # (A) 0.54 X 10*3/uL (0.20-1.00); Monocytes % (A) 7.9 %; NRBC Per 100 WBC 0 /100 WBCS (0.0-0.0); Neutrophils # (A) 4.42 X 10*3/uL (1.80-7.70); Neutrophils % (A) 64.6 %; Platelet Count 164 X 10*3/uL (140-440); RBC 3.98 X 10*6/uL (4.10-5.20); RDW 16.3 % (11.5-14.5); WBC 6.84 X 10*3/uL (4.50-10.00)
[2021-07-29 20:37] LABS: Bacteria,Urine 3+ /HPF (None Seen)
== END | disposition home or self-care (01) ==
LOC: LABWHC1 11:30
PROVIDERS: ATTEND Internal Medicine Nephrology
DX: N18.30 Chronic kidney disease, stage 3 unspecified (principal); E55.9 Vitamin D deficiency, unspecified; N25.81 Secondary hyperparathyroidism of renal origin; M10.9 Gout, unspecified; D64.9 Anemia, unspecified; R80.9 Proteinuria, unspecified; N39.0 Urinary tract infection, site not specified
CPT/HCPCS: 36415; 80048; 81001; 82040; 82306; 82570; 82728; 83540; 83550; 83735; 83970; 84100; 84156; 84550; 85025

== ENCOUNTER → 2022-02-06 | Outpatient (CLI) | payer MEDICARE ==
[2022-02-06 15:24] LABS: Basophils # (A) 0.04 X 10*3/uL (0.00-0.10); Basophils % (A) 0.5 %; Eosinophils # (A) 0.25 X 10*3/uL (0.04-0.35); Eosinophils % (A) 3.2 %; HCT 36.9 % (37.2-46.3); HGB 11.5 g/dL (12.0-15.0); Immature Grans, Automated 0.4 %; Lymphocytes # (A) 1.72 X 10*3/uL (0.90-5.00); Lymphocytes % (A) 22.2 %; MCH 29.8 pg (27.0-32.0); MCHC 31.2 g/dL (32.0-37.0); MCV 95.6 fL (80.0-97.0); Mean Platelet Volume 11.8 fL (9.5-12.2); Monocytes # (A) 0.65 X 10*3/uL (0.20-1.00); Monocytes % (A) 8.4 %; NRBC Per 100 WBC 0 /100 WBCS (0.0-0.0); Neutrophils # (A) 5.06 X 10*3/uL (1.80-7.70); Neutrophils % (A) 65.3 %; Platelet Count 176 X 10*3/uL (140-440); RBC 3.86 X 10*6/uL (4.10-5.20); RDW 15.2 % (11.5-14.5); WBC 7.75 X 10*3/uL (4.50-10.00)
[2022-02-06 15:35] LABS: Albumin 4.4 g/dL (3.8-4.9)
[2022-02-06 15:57] LABS: Appearance,Urine Clear (Clear); Bilirubin,Urine Negative (Negative); Blood,Urine Negative (Negative); Color,Urine Yellow (Yellow); Ketones,Urine Negative (Negative); Nitrite,Urine Negative (Negative); PH, Urine 5.5 (5.0-8.0); Specific Gravity,Urine 1.008 (1.001-1.030); Urobilinogen,Urine 0.2 (0.2,1.0)
[2022-02-06 16:01] LABS: Bacteria,Urine 3+ /HPF (None Seen)
[2022-02-06 18:25] LABS: Magnesium 2.2 mg/dL (1.5-2.4); Phosphorus 3.7 mg/dL (2.4-5.1); Uric Acid 5.1 mg/dL (2.9-7.7)
[2022-02-06 19:26] LABS: % Iron Saturation 15.02 (12.00-45.00); African American GFR (CKD) 26.2 (60.0-200.0); Anion Gap 15.6 mmol/L (10.00-18.00); BUN/Creat Ratio 22.43 Ratio (12.00-20.00); Blood Urea Nitrogen 47.1 mg/dL (9.0-27.0); Calcium 9.6 mg/dL (8.7-10.3); Carbon Dioxide 22.4 mmol/L (20.0-27.5); Non-African American GFR(CKD) 22.6 (60.0-200.0); Potassium 4.6 mmol/L (3.5-5.5)
== END | disposition home or self-care (01) ==
LOC: LABWHC1 10:02
PROVIDERS: ATTEND Internal Medicine Nephrology
DX: N25.81 Secondary hyperparathyroidism of renal origin (principal); N18.30 Chronic kidney disease, stage 3 unspecified; E55.9 Vitamin D deficiency, unspecified; D63.1 Anemia in chronic kidney disease; M10.9 Gout, unspecified; N39.0 Urinary tract infection, site not specified; R80.9 Proteinuria, unspecified
CPT/HCPCS: 36415; 80048; 81001; 82040; 82306; 82728; 83540; 83550; 83735; 83970; 84100; 84550; 85025

== ENCOUNTER → 2022-06-09 | Outpatient (CLI) | payer MEDICARE ==
[2022-06-09 20:11] LABS: Basophils # (A) 0.04 X 10*3/uL (0.00-0.10); Basophils % (A) 0.5 %; Eosinophils # (A) 0.22 X 10*3/uL (0.04-0.35); HCT 38.3 % (37.2-46.3); HGB 11.5 g/dL (12.0-15.0); Immature Grans, Automated 0.4 %; Lymphocytes # (A) 1.51 X 10*3/uL (0.90-5.00); Lymphocytes % (A) 20.6 %; MCH 28.8 pg (27.0-32.0); MCV 95.8 fL (80.0-97.0); Mean Platelet Volume 12.1 fL (9.5-12.2); Monocytes # (A) 0.54 X 10*3/uL (0.20-1.00); Monocytes % (A) 7.4 %; NRBC Per 100 WBC 0 /100 WBCS (0.0-0.0); Neutrophils # (A) 4.99 X 10*3/uL (1.80-7.70); Neutrophils % (A) 68.1 %; Platelet Count 178 X 10*3/uL (140-440); RDW 15.9 % (11.5-14.5); WBC 7.33 X 10*3/uL (4.50-10.00)
[2022-06-09 20:43] LABS: Albumin 4.1 g/dL (3.8-4.9); Ferritin 99.8 ng/mL (10.0-291.0)
[2022-06-09 22:58] LABS: % Iron Saturation 12.54 (12.00-45.00); African American GFR (CKD) 25.1 (60.0-200.0); Anion Gap 18.2 mmol/L (10.00-18.00); BUN/Creat Ratio 21.56 Ratio (12.00-20.00); Calcium 9.7 mg/dL (8.7-10.3); Carbon Dioxide 23.6 mmol/L (20.0-27.5); Magnesium 2.3 mg/dL (1.5-2.4); Non-African American GFR(CKD) 21.6 (60.0-200.0); Potassium 5.2 mmol/L (3.5-5.5); Uric Acid 5.2 mg/dL (2.9-7.7)
[2022-06-10 04:08] LABS: Appearance,Urine Clear (Clear); Bilirubin,Urine Negative (Negative); Blood,Urine Negative (Negative); Color,Urine Yellow (Yellow); Ketones,Urine Negative (Negative); Nitrite,Urine Negative (Negative); PH, Urine 5.5 (5.0-8.0); Specific Gravity,Urine 1.008 (1.001-1.030); Urobilinogen,Urine 0.2 (0.2,1.0)
[2022-06-10 04:21] LABS: Bacteria,Urine Trace /HPF (None Seen)
[2022-06-10 04:45] LABS: Microalbumin Creatinine Ratio <30 mg/g Creat (0-30); Urine Creatinine 33.6 mg/dL (28.0-217.0)
== END | disposition home or self-care (01) ==
LOC: LABWHC1 10:55
PROVIDERS: ATTEND Internal Medicine Nephrology
DX: E55.9 Vitamin D deficiency, unspecified (principal); N25.81 Secondary hyperparathyroidism of renal origin; M10.9 Gout, unspecified; N39.0 Urinary tract infection, site not specified; D63.1 Anemia in chronic kidney disease; N18.31 Chronic kidney disease, stage 3a; R80.9 Proteinuria, unspecified
CPT/HCPCS: 36415; 80048; 81001; 82040; 82043; 82306; 82570; 82728; 83540; 83550; 83735; 83970; 84100; 84550; 85025

== ENCOUNTER → 2022-06-27 | Outpatient (CLI) | payer MEDICARE ==
[2022-06-27 16:16] LABS: African American GFR (CKD) 25.3 (60.0-200.0); Anion Gap 16.6 mmol/L (10.00-18.00); BUN/Creat Ratio 20.37 Ratio (12.00-20.00); Calcium 10.1 mg/dL (8.7-10.3); Carbon Dioxide 22.8 mmol/L (20.0-27.5); Non-African American GFR(CKD) 21.9 (60.0-200.0); Potassium 4.6 mmol/L (3.5-5.5)
== END | disposition home or self-care (01) ==
LOC: LABWHC1 10:08
PROVIDERS: ATTEND Internal Medicine Nephrology
DX: N18.30 Chronic kidney disease, stage 3 unspecified (principal)
CPT/HCPCS: 36415; 80048

== ENCOUNTER → 2022-06-28 | Outpatient (CLI) | payer MEDICARE ==
--- NOTE | 2022-06-28 16:43 | US ---
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 EXAM MEASUREMENTS: Left Kidney: 13.6 x 5.6 x 6.3 cm Right Kidney: Surgically absent Left Kidney: No hydronephrosis or masses seen. Limited visualization due to patient body habitus. Bladder: distended, anechoic Left jet seen There is no evidence for hydronephrosis at this point in time. No nephrolithiasis is seen. No lisseth s are identified. The urinary bladder is anechoic. IMPRESSION: 1. No obstructive uropathy or renal calculus. 2. Medical renal disease.
== END | disposition home or self-care (01) ==
LOC: RADUSWWP 15:43
PROVIDERS: ATTEND Internal Medicine Nephrology
DX: N18.30 Chronic kidney disease, stage 3 unspecified (principal); Z90.5 Acquired absence of kidney
CPT/HCPCS: 76770

== ENCOUNTER → 2022-08-30 | Outpatient (CLI) | payer MEDICARE ==
[2022-08-30 16:01] LABS: Basophils # (A) 0.04 X 10*3/uL (0.00-0.10); Basophils % (A) 0.5 %; Eosinophils # (A) 0.15 X 10*3/uL (0.04-0.35); Eosinophils % (A) 1.9 %; HCT 37.1 % (37.2-46.3); HGB 11.6 d/dL (12.0-15.0); Lymphocytes # (A) 1.62 X 10*3/uL (0.90-5.00); Lymphocytes % (A) 20.3 %; MCH 29.4 pg (27.0-32.0); MCHC 31.3 d/dL (32.0-37.0); MCV 93.9 FL (80.0-97.0); Mean Platelet Volume 11.9 FL (9.5-12.2); Monocytes # (A) 0.62 X 10*3/uL (0.20-1.00); Monocytes % (A) 7.8 %; NRBC Per 100 WBC 0 X 10*3/uL (0.00-0.01); Neutrophils # (A) 5.54 X 10*3/uL (1.80-7.70); Neutrophils % (A) 69.1 %; Platelet Count 154 X 10*3/uL (140-440); RBC 3.95 X 10*6/uL (4.10-5.20); RDW 15.7 % (11.5-14.5)
[2022-08-30 16:43] LABS: Chol/HDL Ratio 3.46 Ratio; LDL Cholesterol,Calculated 102.8 mg/dL (0.0-131.0); T4, Free (Free Thyroxine) 1.77 ng/dL (0.80-1.80)
[2022-08-30 16:57] LABS: Hepatitis A Antibody IgM Nonreactive; Hepatitis B Core IgM Nonreactive; Hepatitis C IgG Antibody Nonreactive
[2022-08-30 21:02] LABS: Hepatitis B Surface Antigen Nonreactive
== END | disposition home or self-care (01) ==
LOC: LABWHC1 08:47
PROVIDERS: ATTEND Nurse Practitioner Family
DX: Z00.00 Encounter for general adult medical examination without abnormal findings (principal); E03.9 Hypothyroidism, unspecified; E78.5 Hyperlipidemia, unspecified
CPT/HCPCS: 36415; 80061; 80074; 83036; 84439; 84443; 85025

== ENCOUNTER → 2022-10-04 | Outpatient (CLI) | payer MEDICARE ==
[2022-10-04 16:43] LABS: Basophils # (A) 0.05 X 10*3/uL (0.00-0.10); Basophils % (A) 0.8 %; Eosinophils % (A) 3.1 %; HCT 36.5 % (37.2-46.3); HGB 11.2 d/dL (12.0-15.0); Lymphocytes # (A) 1.45 X 10*3/uL (0.90-5.00); Lymphocytes % (A) 22.8 %; MCH 28.6 pg (27.0-32.0); MCHC 30.7 d/dL (32.0-37.0); MCV 93.1 FL (80.0-97.0); Mean Platelet Volume 12.3 FL (9.5-12.2); Monocytes # (A) 0.59 X 10*3/uL (0.20-1.00); Monocytes % (A) 9.3 %; NRBC Per 100 WBC 0 X 10*3/uL (0.00-0.01); Neutrophils # (A) 4.03 X 10*3/uL (1.80-7.70); Neutrophils % (A) 63.5 %; Platelet Count 154 X 10*3/uL (140-440); RBC 3.92 X 10*6/uL (4.10-5.20); RDW 15.7 % (11.5-14.5); WBC 6.35 X 10*3/uL (4.50-10.00)
[2022-10-04 17:11] LABS: % Iron Saturation 12.96 (12.00-45.00); Albumin 4.2 d/dL (3.8-4.9); BUN/Creat Ratio 24.75 Ratio (12.00-20.00); Blood Urea Nitrogen 49.5 mg/dL (9.0-27.0); Carbon Dioxide 23.9 mmol/L (21.6-31.8); Chloride 102 mmol/L (96-109); Glucose 146 mg/dL (70-110); Iron 49 UG/DL (50-170); Magnesium 2.4 mg/dL (1.5-2.4); Phosphorus 3.7 mg/dL (2.4-5.1); Potassium 4.7 mmol/L (3.5-5.5); Sodium 139 mmol/L (135-145); Total Iron Binding Capacity 378 UG/DL (228-460)
[2022-10-04 17:17] LABS: Appearance,Urine Clear (Clear); Bilirubin,Urine Negative (Negative); Blood,Urine Negative (Negative); Color,Urine Yellow (Yellow); Ketones,Urine Negative (Negative); Nitrite,Urine Negative (Negative); PH, Urine 5.5; Specific Gravity,Urine 1.014 (1.001-1.030); Urobilinogen,Urine 0.2 E.U./DL
[2022-10-04 17:22] LABS: Bacteria,Urine 1+ (None Seen)
[2022-10-04 17:57] LABS: Microalbumin Creatinine Ratio <12 mg/g Cr (0-30); Urine Creatinine 96.8 mg/dL (28.0-217.0)
== END | disposition home or self-care (01) ==
LOC: LABWHC1 11:03
PROVIDERS: ATTEND Nurse Practitioner Family
DX: E55.9 Vitamin D deficiency, unspecified (principal); N25.81 Secondary hyperparathyroidism of renal origin; M10.9 Gout, unspecified; N39.0 Urinary tract infection, site not specified; D63.1 Anemia in chronic kidney disease; N18.30 Chronic kidney disease, stage 3 unspecified; R80.9 Proteinuria, unspecified
CPT/HCPCS: 36415; 80048; 81001; 82040; 82043; 82306; 82570; 82728; 83540; 83550; 83735; 83970; 84100; 84550; 85025

== ENCOUNTER → 2022-10-24 | Outpatient (CLI) | payer MEDICARE ==
[2022-10-24 15:47] LABS: ALT 17 U/L (8-44); AST 20 U/L (13-35); Albumin 4.6 d/dL (3.8-4.9); Albumin/Globulin Ratio 1.44 Ratio (1.60-3.17); Alkaline Phosphatase 105 U/L (41-126); BUN/Creat Ratio 18.57 Ratio (12.00-20.00); Calcium 10.2 mg/dL (8.7-10.3); Carbon Dioxide 24.1 mmol/L (21.6-31.8); Chloride 100 mmol/L (96-109); Globulin 3.2 d/dL (1.6-3.3); Glucose 112 mg/dL (70-110); Potassium 4.9 mmol/L (3.5-5.5); Sodium 138 mmol/L (135-145); Total Bilirubin 0.5 mg/dL (0.3-1.2); Total Protein 7.8 d/dL (6.2-8.2)
== END | disposition home or self-care (01) ==
LOC: LABWHC1 10:27
PROVIDERS: ATTEND Internal Medicine Nephrology
DX: N18.30 Chronic kidney disease, stage 3 unspecified (principal)
CPT/HCPCS: 36415; 80053

== ENCOUNTER → 2022-11-01 | Outpatient (CLI) | payer MEDICARE ==
[2022-11-01 15:30] LABS: BUN/Creat Ratio 19.33 Ratio (12.00-20.00); Blood Urea Nitrogen 46.4 mg/dL (9.0-27.0); Calcium 9.8 mg/dL (8.7-10.3); Carbon Dioxide 22.3 mmol/L (21.6-31.8); Chloride 104 mmol/L (96-109); Glucose 132 mg/dL (70-110); Potassium 5.5 mmol/L (3.5-5.5); Sodium 138 mmol/L (135-145)
== END | disposition home or self-care (01) ==
LOC: LABWHC1 11:33
PROVIDERS: ATTEND Internal Medicine Nephrology
DX: I12.9 Hypertensive chronic kidney disease with stage 1 through stage 4 chronic kidney disease, or unspecified chronic kidney disease (principal); N18.9 Chronic kidney disease, unspecified
CPT/HCPCS: 36415; 80048

== ENCOUNTER → 2022-12-28 | Outpatient (CLI) | payer MEDICARE ==
[2022-12-28 16:56] LABS: Basophils # (A) 0.05 X 10*3/uL (0.00-0.10); Basophils % (A) 0.7 %; Eosinophils # (A) 0.13 X 10*3/uL (0.04-0.35); Eosinophils % (A) 1.7 %; HCT 37.3 % (37.2-46.3); HGB 11.5 d/dL (12.0-15.0); Lymphocytes # (A) 2.01 X 10*3/uL (0.90-5.00); Lymphocytes % (A) 26.3 %; MCH 28.6 pg (27.0-32.0); MCHC 30.8 d/dL (32.0-37.0); MCV 92.8 FL (80.0-97.0); Mean Platelet Volume 12.1 FL (9.5-12.2); Monocytes # (A) 0.62 X 10*3/uL (0.20-1.00); Monocytes % (A) 8.1 %; NRBC Per 100 WBC 0 X 10*3/uL (0.00-0.01); Neutrophils # (A) 4.79 X 10*3/uL (1.80-7.70); Neutrophils % (A) 62.8 %; Platelet Count 177 X 10*3/uL (140-440); RBC 4.02 X 10*6/uL (4.10-5.20); RDW 15.8 % (11.5-14.5); WBC 7.63 X 10*3/uL (4.50-10.00)
[2022-12-28 17:10] LABS: % Iron Saturation 16.44 (12.00-45.00); Albumin 4.3 d/dL (3.8-4.9); BUN/Creat Ratio 16.21 Ratio (12.00-20.00); Blood Urea Nitrogen 45.4 mg/dL (9.0-27.0); Calcium 10.2 mg/dL (8.7-10.3); Carbon Dioxide 22.9 mmol/L (21.6-31.8); Chloride 99 mmol/L (96-109); Ferritin 66.7 ng/mL (10.0-291.0); Glucose 111 mg/dL (70-110); Iron 61 UG/DL (50-170); Magnesium 2.3 mg/dL (1.5-2.4); Phosphorus 4.1 mg/dL (2.4-5.1); Sodium 138 mmol/L (135-145); Total Iron Binding Capacity 371 UG/DL (228-460); Uric Acid 4.4 mg/dL (2.9-7.7)
[2022-12-28 17:47] LABS: Appearance,Urine Clear (Clear); Bilirubin,Urine Negative (Negative); Blood,Urine Negative (Negative); Color,Urine Yellow (Yellow); Ketones,Urine Negative (Negative); Nitrite,Urine Negative (Negative); PH, Urine 5.5; Urobilinogen,Urine 0.2 E.U./DL
[2022-12-28 19:09] LABS: Bacteria,Urine Trace
[2022-12-28 19:57] LABS: Microalbumin Creatinine Ratio <19 mg/g Cr (0-30); Urine Creatinine 63.4 mg/dL (28.0-217.0)
== END | disposition home or self-care (01) ==
LOC: LABWHC1 09:03
PROVIDERS: ATTEND Internal Medicine Nephrology
DX: E55.9 Vitamin D deficiency, unspecified (principal); N25.81 Secondary hyperparathyroidism of renal origin; M10.9 Gout, unspecified; N39.0 Urinary tract infection, site not specified; N18.30 Chronic kidney disease, stage 3 unspecified; D63.1 Anemia in chronic kidney disease; R80.9 Proteinuria, unspecified
CPT/HCPCS: 36415; 80048; 81001; 82040; 82043; 82306; 82570; 82728; 83540; 83550; 83735; 83970; 84100; 84550; 85025

== ENCOUNTER → 2023-01-04 | Outpatient (CLI) | payer MEDICARE ==
--- NOTE | 2023-01-05 20:46 | MM ---
Reason for Exam: Screening (asymptomatic). Last mammogram was performed 3 year(s) and 11 month(s) ago. Patient History: Menarche at age 8. First Full-Term at age 14. Hysterectomy at age 67. Postmenopausal. Other cancer. 1988, Excisional Biopsy on the Left side. Maternal grandmother had breast cancer, age 50. Mother had breast cancer, age 45. Risk Values: Milind 5 year model risk: 4.3%. NCI Lifetime model risk: 9.6%. Prior Study Comparison: 02/05/2019 Bilateral Screening Mammogram, [facility]. Tissue Density: There are scattered fibroglandular densities. Findings: Analyzed By CAD. Subareolar asymmetric density left breast remains unchanged. There is no suspicious group of microcalcifications or new suspicious mass in either breast. Overall Assessment: Benign, BI-RAD 2 Management: Screening Mammogram of both breasts in 1 year. SEE NOTE BELOW IN REGARDS TO PATIENT'S INCREASED FIVE-YEAR MILIND SCORE. Patient should continue monthly self-breast exams. A clinical breast exam by your physician is recommended on an annual basis. This exam should not preclude additional follow-up of suspicious palpable abnormalities. Note on Milind scores and lifetime risk: 1. A Milind score greater than 3% is considered moderate risk. If this is the case, consider specialist referral to assess eligibility for a risk reducing agent. 2. If overall lifetime risk for the development of breast cancer is 20% or higher, the patient may qualify for future screening with alternating mammogram and breast MRI. Electronically signed and approved by: Monika Hayward M.D. Radiologist
== END | disposition home or self-care (01) ==
LOC: RADMAMWWP 16:35
PROVIDERS: ATTEND Obstetrics & Gynecology Gynecology
DX: Z12.31 Encounter for screening mammogram for malignant neoplasm of breast (principal); Z78.0 Asymptomatic menopausal state; Z80.3 Family history of malignant neoplasm of breast
CPT/HCPCS: 77063; 77067

== ENCOUNTER → 2023-01-13 | Outpatient (CLI) | payer MEDICARE ==
[2023-01-13 22:59] LABS: Basophils # (A) 0.05 X 10*3/uL (0.00-0.10); Basophils % (A) 0.6 %; Eosinophils # (A) 0.16 X 10*3/uL (0.04-0.35); HCT 40.9 % (37.2-46.3); HGB 12.4 g/dL (12.0-15.0); Lymphocytes % (A) 21.1 %; MCH 28.3 pg (27.0-32.0); MCHC 30.3 g/dL (32.0-37.0); MCV 93.4 FL (80.0-97.0); Mean Platelet Volume 12.2 FL (9.5-12.2); Monocytes # (A) 0.59 X 10*3/uL (0.20-1.00); Monocytes % (A) 7.3 %; NRBC Per 100 WBC 0 X 10*3/uL (0.00-0.01); Neutrophils # (A) 5.52 X 10*3/uL (1.80-7.70); Neutrophils % (A) 68.5 %; Platelet Count 190 X 10*3/uL (140-440); RBC 4.38 X 10*6/uL (4.10-5.20); RDW 15.8 % (11.5-14.5); WBC 8.06 X 10*3/uL (4.50-10.00)
[2023-01-13 23:24] LABS: Albumin 4.4 g/dL (3.8-4.9); BUN/Creat Ratio 21.33 Ratio (12.00-20.00); Blood Urea Nitrogen 51.2 mg/dL (9.0-27.0); Calcium 10.2 mg/dL (8.7-10.3); Carbon Dioxide 23.4 mmol/L (21.6-31.8); Chloride 100 mmol/L (96-109); Glucose 141 mg/dL (70-110); Magnesium 2.6 mg/dL (1.5-2.4); Phosphorus 4.3 mg/dL (2.4-5.1); Potassium 4.7 mmol/L (3.5-5.5); Sodium 138 mmol/L (135-145)
[2023-01-13 23:56] LABS: Microalbumin Creatinine Ratio <22 mg/g Cr (0-30); Urine Creatinine 54.3 mg/dL (28.0-217.0)
[2023-01-14 00:08] LABS: % Iron Saturation 13.92 (12.00-45.00); Ferritin 59.8 ng/mL (10.0-291.0); Iron 55 UG/DL (50-170); Total Iron Binding Capacity 395 UG/DL (228-460)
== END | disposition home or self-care (01) ==
LOC: LABWHC1 09:43
PROVIDERS: ATTEND Internal Medicine Nephrology
DX: E55.9 Vitamin D deficiency, unspecified (principal); N25.81 Secondary hyperparathyroidism of renal origin; M10.9 Gout, unspecified; N39.0 Urinary tract infection, site not specified; N18.30 Chronic kidney disease, stage 3 unspecified
CPT/HCPCS: 36415; 80048; 82040; 82043; 82306; 82570; 82728; 83540; 83550; 83735; 83970; 84100; 85025

== ENCOUNTER → 2023-03-13 | Outpatient (CLI) | payer MEDICARE ==
[2023-03-13 15:23] LABS: Basophils # (A) 0.03 X 10*3/uL (0.00-0.10); Basophils % (A) 0.4 %; Eosinophils # (A) 0.14 X 10*3/uL (0.04-0.35); HCT 38.8 % (37.2-46.3); HGB 12.1 g/dL (12.0-15.0); Lymphocytes % (A) 25.2 %; MCH 28.7 pg (27.0-32.0); MCHC 31.2 g/dL (32.0-37.0); MCV 92.2 FL (80.0-97.0); Mean Platelet Volume 12.3 FL (9.5-12.2); Monocytes # (A) 0.51 X 10*3/uL (0.20-1.00); Monocytes % (A) 7.1 %; NRBC Per 100 WBC 0 X 10*3/uL (0.00-0.01); Neutrophils # (A) 4.63 X 10*3/uL (1.80-7.70); Neutrophils % (A) 64.7 %; Platelet Count 173 X 10*3/uL (140-440); RBC 4.21 X 10*6/uL (4.10-5.20); RDW 15.9 % (11.5-14.5); WBC 7.15 X 10*3/uL (4.50-10.00)
[2023-03-13 17:43] LABS: BUN/Creat Ratio 22.71 Ratio (12.00-20.00); Blood Urea Nitrogen 47.7 mg/dL (9.0-27.0); Carbon Dioxide 23.5 mmol/L (21.6-31.8); Chloride 100 mmol/L (96-109); Chol/HDL Ratio 3.99 Ratio; Glucose 147 mg/dL (70-110); LDL Cholesterol,Calculated 104.1 mg/dL (0.0-131.0); Potassium 4.7 mmol/L (3.5-5.5); Sodium 138 mmol/L (135-145)
[2023-03-13 17:44] LABS: ALT 13 U/L (8-44); AST 15 U/L (13-35); Albumin 4.1 g/dL (3.8-4.9); Albumin/Globulin Ratio 1.28 Ratio (1.60-3.17); Alkaline Phosphatase 125 U/L (41-126); Globulin 3.2 g/dL (1.6-3.3); T4, Free (Free Thyroxine) 1.57 ng/dL (0.80-1.80); Total Bilirubin 0.4 mg/dL (0.3-1.2); Total Protein 7.3 g/dL (6.2-8.2)
== END | disposition home or self-care (01) ==
LOC: LABWHC1 09:57
PROVIDERS: ATTEND Family Medicine
DX: I12.9 Hypertensive chronic kidney disease with stage 1 through stage 4 chronic kidney disease, or unspecified chronic kidney disease (principal); E78.5 Hyperlipidemia, unspecified; E03.9 Hypothyroidism, unspecified; M85.80 Other specified disorders of bone density and structure, unspecified site; N18.9 Chronic kidney disease, unspecified; R53.83 Other fatigue
CPT/HCPCS: 36415; 80053; 80061; 82306; 82607; 82746; 83036; 83735; 84439; 84443; 85025

== ENCOUNTER → 2023-03-30 | Outpatient (CLI) | payer MEDICARE ==
[2023-03-30 12:15] LABS: Appearance,Urine Cloudy (Clear); Bacteria,Urine Rare /hpf; Bilirubin,Urine Negative (Negative); Blood,Urine Negative (Negative); Color,Urine Colorless; Glucose,Urine (UA) 2+ (Negative); Hyaline Casts,Urine 13 /lpf (0-2); Ketones,Urine Negative (Negative); Leukocyte Esterase,Urine Large (Negative); Mucus,Urine Rare /hpf; Nitrite,Urine Negative (Negative); PH, Urine 5.5 (5.0-8.0); Protein,Urine Negative (Negative); RBC,Urine 7 /hpf (0-5); Squamous Epithelial Cell,Urine 4 /hpf (0-4); Urobilinogen,Urine <2.0 mg/dL (<2.0); WBC,Urine 27 /hpf (0-5)
[2023-03-30 15:40] LABS: Basophils # (A) 0.03 X 10*3/uL (0.00-0.10); Basophils % (A) 0.4 %; Eosinophils % (A) 1.2 %; HCT 39.8 % (37.2-46.3); HGB 12.1 g/dL (12.0-15.0); Lymphocytes # (A) 1.89 X 10*3/uL (0.90-5.00); Lymphocytes % (A) 23.2 %; MCH 27.7 pg (27.0-32.0); MCHC 30.4 g/dL (32.0-37.0); MCV 91.1 FL (80.0-97.0); Monocytes # (A) 0.65 X 10*3/uL (0.20-1.00); NRBC Per 100 WBC 0 X 10*3/uL (0.00-0.01); Neutrophils # (A) 5.43 X 10*3/uL (1.80-7.70); Neutrophils % (A) 66.6 %; Platelet Count 191 X 10*3/uL (140-440); RBC 4.37 X 10*6/uL (4.10-5.20); RDW 15.9 % (11.5-14.5); WBC 8.15 X 10*3/uL (4.50-10.00)
[2023-03-30 19:11] LABS: Microalbumin Creatinine Ratio <16 mg/g Cr (0-30); Urine Creatinine 74.8 mg/dL (28.0-217.0)
[2023-03-30 21:01] LABS: Magnesium 2.3 mg/dL (1.5-2.4); Phosphorus 3.6 mg/dL (2.4-5.1)
[2023-03-30 21:02] LABS: % Iron Saturation 17.86 (12.00-45.00); Albumin 4.2 g/dL (3.8-4.9); BUN/Creat Ratio 19.27 Ratio (12.00-20.00); Blood Urea Nitrogen 42.4 mg/dL (9.0-27.0); Calcium 9.9 mg/dL (8.7-10.3); Carbon Dioxide 20.7 mmol/L (21.6-31.8); Chloride 100 mmol/L (96-109); Ferritin 57.2 ng/mL (10.0-291.0); Glucose 166 mg/dL (70-110); Iron 45 UG/DL (50-170); Sodium 140 mmol/L (135-145); Total Iron Binding Capacity 252 UG/DL (228-460); Uric Acid 4.8 mg/dL (2.9-7.7)
== END | disposition home or self-care (01) ==
LOC: LABWHC1 10:14
PROVIDERS: ATTEND Internal Medicine Nephrology
DX: E55.9 Vitamin D deficiency, unspecified (principal); N25.81 Secondary hyperparathyroidism of renal origin; M10.9 Gout, unspecified; N39.0 Urinary tract infection, site not specified; N18.30 Chronic kidney disease, stage 3 unspecified; D63.1 Anemia in chronic kidney disease; R80.9 Proteinuria, unspecified
CPT/HCPCS: 36415; 80048; 81001; 82040; 82043; 82306; 82570; 82728; 83540; 83550; 83735; 83970; 84100; 84550; 85025; 87086

== ENCOUNTER → 2023-07-02 | Outpatient (CLI) | payer MEDICARE ==
[2023-07-02 21:42] LABS: Appearance,Urine Cloudy (Clear); Bilirubin,Urine Negative (Negative); Blood,Urine Trace (Negative); Color,Urine Yellow (Yellow); Ketones,Urine Negative (Negative); Nitrite,Urine Negative (Negative); Specific Gravity,Urine 1.014 (1.001-1.030); Urobilinogen,Urine 0.2 E.U./DL
[2023-07-02 21:59] LABS: Bacteria,Urine 2+ (None Seen)
[2023-07-02 22:30] LABS: Basophils # (A) 0.04 X 10*3/uL (0.00-0.10); Basophils % (A) 0.4 %; Eosinophils # (A) 0.12 X 10*3/uL (0.04-0.35); Eosinophils % (A) 1.2 %; HCT 38.2 % (37.2-46.3); Lymphocytes # (A) 2.59 X 10*3/uL (0.90-5.00); Lymphocytes % (A) 25.6 %; MCH 28.1 pg (27.0-32.0); MCHC 31.4 g/dL (32.0-37.0); MCV 89.5 FL (80.0-97.0); Mean Platelet Volume 12.5 FL (9.5-12.2); Monocytes # (A) 0.92 X 10*3/uL (0.20-1.00); Monocytes % (A) 9.1 %; NRBC Per 100 WBC 0 X 10*3/uL (0.00-0.01); Neutrophils # (A) 6.38 X 10*3/uL (1.80-7.70); Platelet Count 201 X 10*3/uL (140-440); RBC 4.27 X 10*6/uL (4.10-5.20); RDW 16.1 % (11.5-14.5); WBC 10.12 X 10*3/uL (4.50-10.00)
[2023-07-02 23:16] LABS: % Iron Saturation 11.78 (12.00-45.00); Albumin 4.3 g/dL (3.8-4.9); BUN/Creat Ratio 20.38 Ratio (12.00-20.00); Calcium 9.9 mg/dL (8.7-10.3); Carbon Dioxide 20.6 mmol/L (21.6-31.8); Chloride 100 mmol/L (96-109); Ferritin 48.7 ng/mL (10.0-291.0); Glucose 157 mg/dL (70-110); Iron 47 UG/DL (50-170); Magnesium 2.2 mg/dL (1.5-2.4); Phosphorus 3.8 mg/dL (2.4-5.1); Potassium 4.2 mmol/L (3.5-5.5); Sodium 136 mmol/L (135-145); Total Iron Binding Capacity 399 UG/DL (228-460); Uric Acid 4.3 mg/dL (2.9-7.7)
[2023-07-03 06:33] LABS: Microalbumin Creatinine Ratio <10 mg/g Cr (0-30)
== END | disposition home or self-care (01) ==
LOC: LABWHC1 16:17
PROVIDERS: ATTEND Internal Medicine Nephrology
DX: E55.9 Vitamin D deficiency, unspecified (principal); N25.81 Secondary hyperparathyroidism of renal origin; M10.9 Gout, unspecified; N39.0 Urinary tract infection, site not specified; N18.30 Chronic kidney disease, stage 3 unspecified; D63.1 Anemia in chronic kidney disease
CPT/HCPCS: 36415; 80048; 81001; 82040; 82043; 82306; 82570; 82728; 83540; 83550; 83735; 83970; 84100; 84550; 85025

== ENCOUNTER → 2023-07-10 | Outpatient (CLI) | payer MEDICARE ==
--- NOTE | 2023-07-10 13:51 | US ---
EXAMINATION TYPE: US kidneys/renal and bladder DATE OF EXAM: 07/10/2023 COMPARISON: 06/28/2022. CLINICAL INDICATION: Female, 73 years old with history of N18.30 CKD; CKD right kidney removed in 197 5 EXAM MEASUREMENTS: Right Kidney: Surgically absent Left Kidney: 14.3 x 5.9 x 4.8 cm Right Kidney: Surgically absent Left Kidney: No hydronephrosis or masses seen Bladder: anechoic Bilateral Jets seen: no There is no evidence for hydronephrosis at this point in time. No nephrolithiasis is seen. No lisseth s are identified. The urinary bladder is anechoic. IMPRESSION: No evidence for obstructive uropathy or renal calculus.
== END | disposition home or self-care (01) ==
LOC: RADUSWWP 13:01
PROVIDERS: ATTEND Internal Medicine Nephrology
DX: N18.30 Chronic kidney disease, stage 3 unspecified (principal); Z90.5 Acquired absence of kidney
CPT/HCPCS: 76770

== ENCOUNTER → 2023-09-03 | Outpatient (CLI) | payer MEDICARE ==
[2023-09-03 18:25] LABS: Basophils # (A) 0.05 X 10*3/uL (0.00-0.10); Basophils % (A) 0.6 %; Eosinophils % (A) 1.3 %; HCT 36.2 % (37.2-46.3); Lymphocytes % (A) 20.4 %; MCH 28.2 pg (27.0-32.0); MCHC 30.4 g/dL (32.0-37.0); MCV 92.8 FL (80.0-97.0); Mean Platelet Volume 11.6 FL (9.5-12.2); Monocytes # (A) 0.64 X 10*3/uL (0.20-1.00); Monocytes % (A) 8.1 %; NRBC Per 100 WBC 0 X 10*3/uL (0.00-0.01); Neutrophils # (A) 5.41 X 10*3/uL (1.80-7.70); Neutrophils % (A) 68.8 %; Platelet Count 187 X 10*3/uL (140-440); WBC 7.86 X 10*3/uL (4.50-10.00)
[2023-09-03 19:33] LABS: Appearance,Urine Cloudy (Clear); Bilirubin,Urine Negative (Negative); Blood,Urine Negative (Negative); Color,Urine Yellow (Yellow); Ketones,Urine Negative (Negative); Nitrite,Urine Negative (Negative); PH, Urine 5.5; Specific Gravity,Urine 1.014 (1.001-1.030); Urobilinogen,Urine 0.2 E.U./DL
[2023-09-03 19:41] LABS: Bacteria,Urine 2+ (None Seen)
[2023-09-03 22:49] LABS: % Iron Saturation 15.35 (12.00-45.00); Iron 60 UG/DL (50-170); Magnesium 2.2 mg/dL (1.5-2.4); Phosphorus 3.8 mg/dL (2.4-5.1); T4, Free (Free Thyroxine) 1.69 ng/dL (0.80-1.80); Total Iron Binding Capacity 391 UG/DL (228-460); Uric Acid 4.6 mg/dL (2.9-7.7)
[2023-09-03 22:52] LABS: ALT 11 U/L (8-44); AST 21 U/L (13-35); Albumin 4.2 g/dL (3.8-4.9); Albumin/Globulin Ratio 1.24 Ratio (1.60-3.17); Alkaline Phosphatase 110 U/L (41-126); BUN/Creat Ratio 18.35 Ratio (12.00-20.00); Blood Urea Nitrogen 42.2 mg/dL (9.0-27.0); Calcium 9.9 mg/dL (8.7-10.3); Chloride 99 mmol/L (96-109); Chol/HDL Ratio 3.69 Ratio; Globulin 3.4 g/dL (1.6-3.3); Glucose 163 mg/dL (70-110); LDL Cholesterol,Calculated 85.2 mg/dL (0.0-131.0); Potassium 4.8 mmol/L (3.5-5.5); Sodium 137 mmol/L (135-145); Total Bilirubin 0.5 mg/dL (0.3-1.2); Total Protein 7.6 g/dL (6.2-8.2)
== END | disposition home or self-care (01) ==
LOC: LABWHC1 12:37
PROVIDERS: ATTEND Internal Medicine Nephrology
DX: Z00.00 Encounter for general adult medical examination without abnormal findings (principal); I12.9 Hypertensive chronic kidney disease with stage 1 through stage 4 chronic kidney disease, or unspecified chronic kidney disease; I25.10 Atherosclerotic heart disease of native coronary artery without angina pectoris; E55.9 Vitamin D deficiency, unspecified; N25.81 Secondary hyperparathyroidism of renal origin; M10.9 Gout, unspecified; E78.5 Hyperlipidemia, unspecified; M85.80 Other specified disorders of bone density and structure, unspecified site; E03.9 Hypothyroidism, unspecified; N39.0 Urinary tract infection, site not specified; D63.1 Anemia in chronic kidney disease; N18.30 Chronic kidney disease, stage 3 unspecified; R80.9 Proteinuria, unspecified
CPT/HCPCS: 36415; 80053; 80061; 81001; 82043; 82306; 82570; 82607; 82728; 82746; 83036; 83540; 83550; 83735; 83970; 84100; 84439; 84443; 84550; 85025

== ENCOUNTER → 2023-11-21 | Outpatient (CLI) | payer MEDICARE ==
[2023-11-21 15:40] LABS: Appearance,Urine Cloudy (Clear); Bilirubin,Urine Negative (Negative); Blood,Urine Negative (Negative); Color,Urine Yellow (Yellow); Ketones,Urine Negative (Negative); Nitrite,Urine Negative (Negative); PH, Urine 5.5; Specific Gravity,Urine 1.012 (1.001-1.030); Urobilinogen,Urine 0.2 E.U./DL
[2023-11-21 15:44] LABS: % Iron Saturation 13.94 (12.00-45.00); Albumin 4.2 g/dL (3.8-4.9); BUN/Creat Ratio 20.23 Ratio (12.00-20.00); Blood Urea Nitrogen 52.6 mg/dL (9.0-27.0); Calcium 10.1 mg/dL (8.7-10.3); Chloride 102 mmol/L (96-109); Ferritin 37.1 ng/mL (10.0-291.0); Glucose 148 mg/dL (70-110); Iron 57 UG/DL (50-170); Potassium 4.9 mmol/L (3.5-5.5); Sodium 139 mmol/L (135-145); Total Iron Binding Capacity 409 UG/DL (228-460)
[2023-11-21 15:45] LABS: Bacteria,Urine 1+ (None Seen)
[2023-11-21 15:47] LABS: Basophils # (A) 0.04 X 10*3/uL (0.00-0.10); Basophils % (A) 0.5 %; Eosinophils # (A) 0.09 X 10*3/uL (0.04-0.35); Eosinophils % (A) 1.1 %; HCT 37.8 % (37.2-46.3); HGB 11.9 g/dL (12.0-15.0); Lymphocytes # (A) 2.25 X 10*3/uL (0.90-5.00); Lymphocytes % (A) 28.3 %; MCHC 31.5 g/dL (32.0-37.0); Mean Platelet Volume 12.4 FL (9.5-12.2); Monocytes # (A) 0.66 X 10*3/uL (0.20-1.00); Monocytes % (A) 8.3 %; NRBC Per 100 WBC 0 X 10*3/uL (0.00-0.01); Neutrophils # (A) 4.88 X 10*3/uL (1.80-7.70); Neutrophils % (A) 61.4 %; Platelet Count 173 X 10*3/uL (140-440); RBC 4.11 X 10*6/uL (4.10-5.20); RDW 16.1 % (11.5-14.5); WBC 7.95 X 10*3/uL (4.50-10.00)
[2023-11-21 20:08] LABS: Microalbumin Creatinine Ratio <11 mg/g Cr (0-30)
== END ==
LOC: LABWHC1 11:41
PROVIDERS: ATTEND Internal Medicine Nephrology
DX: N18.30 Chronic kidney disease, stage 3 unspecified
CPT/HCPCS: 36415; 80048; 81001; 82040; 82043; 82570; 82728; 83540; 83550; 83970; 85025

== ENCOUNTER → 2024-02-13 | Outpatient (CLI) | payer MEDICARE ==
--- NOTE | 2024-02-18 11:22 | MM ---
Reason for Exam: Screening (asymptomatic). Last mammogram was performed 1 year(s) and 1 month(s) ago. Patient History: Menarche at age 8. First Full-Term at age 14. Hysterectomy at age 67. Postmenopausal. 1988, Excisional Biopsy on the Left side. Maternal grandmother had breast cancer, age 50. Mother had breast cancer, age 45. Risk Values: Madhavi 5 year model risk: 4.2%. NCI Lifetime model risk: 8.5%. Prior Study Comparison: 02/05/2019 Bilateral Screening Mammogram, [facility]. 01/04/2023 Bilateral MG 3D screening mammo w/cad, [facility]. Tissue Density: The breasts are almost entirely fatty. Findings: Analyzed By CAD. Right breast: There is no suspicious group of microcalcifications or new suspicious mass. Left breast: There is no suspicious group of microcalcifications or new suspicious mass. Overall Assessment: Negative, BI-RAD 1 Management: Screening Mammogram of both breasts in [address] [facility] will attempt to contact patient to return for supplemental views and ultrasound if indicated. Patient should continue monthly self-breast exams. A clinical breast exam by your physician is recommended on an annual basis. This exam should not preclude additional follow-up of suspicious palpable abnormalities. Note on Madhavi scores and lifetime risk: 1. A Madhavi score greater than 3% is considered moderate risk. If this is the case, consider specialist referral to assess eligibility for a risk reducing agent. 2. If overall lifetime risk for the development of breast cancer is 20% or higher, the patient may qualify for future screening with alternating mammogram and breast MRI. [facility], , 02/18/2024 11:20 AM. Electronically signed and approved by: Santana Wagner DO
== END | disposition home or self-care (01) ==
LOC: RADMAMWWP 11:33
PROVIDERS: ATTEND Obstetrics & Gynecology Gynecology
DX: Z12.31 Encounter for screening mammogram for malignant neoplasm of breast (principal); Z78.0 Asymptomatic menopausal state; Z80.3 Family history of malignant neoplasm of breast; R92.313 Mammographic fatty tissue density, bilateral breasts
CPT/HCPCS: 77063; 77067

== ENCOUNTER → 2024-02-13 | Outpatient (CLI) | payer MEDICARE ==
[2024-02-13 14:15] LABS: Appearance,Urine Cloudy (Clear); Bacteria,Urine Many /hpf; Bilirubin,Urine Negative (Negative); Blood,Urine Negative (Negative); Color,Urine Colorless; Glucose,Urine (UA) 2+ (Negative); Ketones,Urine Negative (Negative); Leukocyte Esterase,Urine Large (Negative); Mucus,Urine Rare /hpf; Nitrite,Urine Negative (Negative); Protein,Urine Negative (Negative); RBC,Urine 40 /hpf (0-5); Specific Gravity,Urine 1.009 (1.001-1.035); Squamous Epithelial Cell,Urine 5 /hpf (0-4); Urobilinogen,Urine <2.0 mg/dL (<2.0); WBC,Urine 43 /hpf (0-5)
[2024-02-13 16:39] LABS: Magnesium 2.3 mg/dL (1.5-2.4); Phosphorus 3.7 mg/dL (2.4-5.1)
[2024-02-13 16:40] LABS: % Iron Saturation 13.38 (12.00-45.00); Albumin 4.3 g/dL (3.8-4.9); BUN/Creat Ratio 20.79 Ratio (12.00-20.00); Blood Urea Nitrogen 49.9 mg/dL (9.0-27.0); Calcium 9.7 mg/dL (8.7-10.3); Carbon Dioxide 21.3 mmol/L (21.6-31.8); Chloride 100 mmol/L (96-109); Glucose 134 mg/dL (70-110); Iron 57 UG/DL (50-170); Potassium 4.7 mmol/L (3.5-5.5); Sodium 137 mmol/L (135-145); Total Iron Binding Capacity 426 UG/DL (228-460)
[2024-02-13 17:10] LABS: Basophils # (A) 0.03 X 10*3/uL (0.00-0.10); Basophils % (A) 0.4 %; Eosinophils % (A) 1.3 %; HCT 38.9 % (37.2-46.3); HGB 11.9 g/dL (12.0-15.0); Lymphocytes # (A) 1.76 X 10*3/uL (0.90-5.00); Lymphocytes % (A) 22.1 %; MCH 27.9 pg (27.0-32.0); MCHC 30.6 g/dL (32.0-37.0); MCV 91.3 FL (80.0-97.0); Mean Platelet Volume 12.3 FL (9.5-12.2); Monocytes % (A) 8.8 %; NRBC Per 100 WBC 0 X 10*3/uL (0.00-0.01); Neutrophils # (A) 5.33 X 10*3/uL (1.80-7.70); Platelet Count 177 X 10*3/uL (140-440); RBC 4.26 X 10*6/uL (4.10-5.20); RDW 16.1 % (11.5-14.5); WBC 7.95 X 10*3/uL (4.50-10.00)
[2024-02-13 19:34] LABS: Microalbumin Creatinine Ratio <21 mg/g Cr (0-30); Urine Creatinine 56.2 mg/dL (28.0-217.0)
== END | disposition home or self-care (01) ==
LOC: LABWHC1 11:39
PROVIDERS: ATTEND Internal Medicine Nephrology
DX: E55.9 Vitamin D deficiency, unspecified (principal); N25.81 Secondary hyperparathyroidism of renal origin; M10.9 Gout, unspecified; N39.0 Urinary tract infection, site not specified; N18.4 Chronic kidney disease, stage 4 (severe); D64.9 Anemia, unspecified; R80.9 Proteinuria, unspecified
CPT/HCPCS: 36415; 80048; 81001; 82040; 82043; 82306; 82570; 83540; 83550; 83735; 83970; 84100; 84550; 85025

== ENCOUNTER → 2024-05-05 | Outpatient (CLI) | payer MEDICARE ==
[2024-05-05 16:07] LABS: Appearance,Urine Clear (Clear); Bilirubin,Urine Negative (Negative); Blood,Urine Negative (Negative); Color,Urine Yellow (Yellow); Ketones,Urine Negative (Negative); Nitrite,Urine Negative (Negative); Specific Gravity,Urine 1.011 (1.001-1.030); Urobilinogen,Urine 0.2 E.U./DL
[2024-05-05 16:22] LABS: Bacteria,Urine Trace (None Seen)
[2024-05-05 16:47] LABS: % Iron Saturation 9.34 (12.00-45.00); BUN/Creat Ratio 22.52 Ratio (12.00-20.00); Blood Urea Nitrogen 51.8 mg/dL (9.0-27.0); Chloride 103 mmol/L (96-109); Chol/HDL Ratio 2.48 Ratio; Glucose 129 mg/dL (70-110); Iron 38 UG/DL (50-170); LDL Cholesterol,Calculated 49.5 mg/dL (0.0-131.0); Magnesium 2.6 mg/dL (1.5-2.4); Potassium 4.9 mmol/L (3.5-5.5); Sodium 138 mmol/L (135-145); Total Iron Binding Capacity 407 UG/DL (228-460); Uric Acid 4.4 mg/dL (2.9-7.7)
[2024-05-05 16:48] LABS: ALT 12 U/L (8-44); AST 17 U/L (13-35); Albumin 4.1 g/dL (3.8-4.9); Albumin/Globulin Ratio 1.32 Ratio (1.60-3.17); Alkaline Phosphatase 114 U/L (41-126); Calcium 9.7 mg/dL (8.7-10.3); Carbon Dioxide 24.6 mmol/L (21.6-31.8); Ferritin 25.2 ng/mL (10.0-291.0); Globulin 3.1 g/dL (1.6-3.3); Total Bilirubin 0.3 mg/dL (0.3-1.2); Total Protein 7.2 g/dL (6.2-8.2)
[2024-05-05 17:02] LABS: Basophils # (A) 0.04 X 10*3/uL (0.00-0.10); Basophils % (A) 0.6 %; Eosinophils # (A) 0.14 X 10*3/uL (0.04-0.35); Eosinophils % (A) 2.2 %; HCT 34.4 % (37.2-46.3); HGB 10.3 g/dL (12.0-15.0); MCH 27.5 pg (27.0-32.0); MCHC 29.9 g/dL (32.0-37.0); MCV 91.7 FL (80.0-97.0); Mean Platelet Volume 11.9 FL (9.5-12.2); Monocytes # (A) 0.58 X 10*3/uL (0.20-1.00); Monocytes % (A) 9.1 %; NRBC Per 100 WBC 0 X 10*3/uL (0.00-0.01); Neutrophils # (A) 4.17 X 10*3/uL (1.80-7.70); Neutrophils % (A) 65.8 %; Platelet Count 178 X 10*3/uL (140-440); RBC 3.75 X 10*6/uL (4.10-5.20); RDW 16.4 % (11.5-14.5); WBC 6.35 X 10*3/uL (4.50-10.00)
[2024-05-05 19:06] LABS: Microalbumin Creatinine Ratio <20 mg/g Cr (0-30); Urine Creatinine 61.4 mg/dL (28.0-217.0)
== END | disposition home or self-care (01) ==
LOC: LABWHC1 11:32
PROVIDERS: ATTEND Internal Medicine
DX: E11.65 Type 2 diabetes mellitus with hyperglycemia (principal); E55.9 Vitamin D deficiency, unspecified; N25.81 Secondary hyperparathyroidism of renal origin; M10.9 Gout, unspecified; N39.0 Urinary tract infection, site not specified; D63.1 Anemia in chronic kidney disease; N18.4 Chronic kidney disease, stage 4 (severe); E11.22 Type 2 diabetes mellitus with diabetic chronic kidney disease; R80.9 Proteinuria, unspecified
CPT/HCPCS: 36415; 80053; 80061; 81001; 82043; 82306; 82570; 82728; 83036; 83540; 83550; 83735; 83970; 84550; 85025

== ENCOUNTER → 2024-08-19 | Outpatient (CLI) | payer MEDICARE ==
[2024-08-19 15:02] LABS: Basophils # (A) 0.04 X 10*3/uL (0.00-0.10); Basophils % (A) 0.4 %; Eosinophils # (A) 0.15 X 10*3/uL (0.04-0.35); Eosinophils % (A) 1.3 %; HCT 40.7 % (37.2-46.3); HGB 12.6 g/dL (12.0-15.0); Lymphocytes # (A) 3.16 X 10*3/uL (0.90-5.00); Lymphocytes % (A) 27.7 %; MCH 28.6 pg (27.0-32.0); MCV 92.5 FL (80.0-97.0); Mean Platelet Volume 12.5 FL (9.5-12.2); Monocytes # (A) 0.72 X 10*3/uL (0.20-1.00); Monocytes % (A) 6.3 %; NRBC Per 100 WBC 0 X 10*3/uL (0.00-0.01); Neutrophils % (A) 63.9 %; Platelet Count 182 X 10*3/uL (140-440); RDW 16.8 % (11.5-14.5); WBC 11.42 X 10*3/uL (4.50-10.00)
[2024-08-19 15:10] LABS: Appearance,Urine Turbid (Clear); Bilirubin,Urine Negative (Negative); Blood,Urine Small (Negative); Color,Urine Yellow (Yellow); Ketones,Urine Negative (Negative); Nitrite,Urine Positive (Negative); PH, Urine 5.5; Specific Gravity,Urine 1.011 (1.001-1.030); Urobilinogen,Urine 0.2 E.U./DL
[2024-08-19 15:35] LABS: Bacteria,Urine 3+ (None Seen); Mucus,Urine Present
[2024-08-19 15:44] LABS: % Iron Saturation 16.67 (12.00-45.00); BUN/Creat Ratio 24.17 Ratio (12.00-20.00); Blood Urea Nitrogen 55.6 mg/dL (9.0-27.0); Carbon Dioxide 18.1 mmol/L (21.6-31.8); Chloride 99 mmol/L (96-109); Glucose 151 mg/dL (70-110); Iron 62 UG/DL (50-170); Magnesium 1.8 mg/dL (1.5-2.4); Potassium 4.4 mmol/L (3.5-5.5); Sodium 136 mmol/L (135-145); Total Iron Binding Capacity 372 UG/DL (228-460)
[2024-08-19 15:45] LABS: Albumin 4.4 g/dL (3.8-4.9); Calcium 9.8 mg/dL (8.7-10.3); Ferritin 82.9 ng/mL (10.0-291.0)
== END | disposition home or self-care (01) ==
LOC: LABWHC1 10:17
PROVIDERS: ATTEND Nurse Practitioner Family
DX: N18.4 Chronic kidney disease, stage 4 (severe) (principal); E55.9 Vitamin D deficiency, unspecified; N25.81 Secondary hyperparathyroidism of renal origin; M10.9 Gout, unspecified; N39.0 Urinary tract infection, site not specified; D63.1 Anemia in chronic kidney disease
CPT/HCPCS: 36415; 80048; 81001; 82040; 82043; 82306; 82570; 82728; 83540; 83550; 83735; 83970; 84550; 85025